=== PATIENT | male | born 1945 | race Caucasian/White ===

== ENCOUNTER 2017-05-09 20:54 | Inpatient (IN) | payer OTHER, MEDICARE ==
[2017-05-10] MEDS ORDERED: MAGNESIUM HYDROXIDE SUSP 30 ML CUP PO PRN (02:15)
[2017-05-10] MEDS ORDERED: cloNIDine HCL 0.1 MG TAB PO PRN (02:15)
[2017-05-10] MEDS ORDERED: NICOTINE 21 MG/24 HR PATCH T-DERMAL SCH (09:00)
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
[2017-05-10] MEDS ORDERED: DIPH25CA PO (12:04)
[2017-05-10] MEDS ORDERED: DULC10SU3 RECTAL (12:04)
[2017-05-10] MEDS ORDERED: LISI-515 PO (12:04)
[2017-05-10] MEDS ORDERED: SERT-132 PO (12:04)
[2017-05-10] MEDS ORDERED: AMLO5TAB2 PO (12:04)
[2017-05-10] MEDS ORDERED: VIMP200T PO (12:04)
[2017-05-10] MEDS ORDERED: SERO25TA PO (12:04)
[2017-05-10] MEDS ORDERED: LEVE10003 PO (12:04)
[2017-05-10] MEDS ORDERED: DOCU8.6T PO (12:04)
[2017-05-10] MEDS ORDERED: ASPI81CH6 CHEW (12:04)
[2017-05-10] MEDS ORDERED: VITA10002 PO (12:04)
[2017-05-10] MEDS ORDERED: MULT-65 PO (12:04)
[2017-05-10] MEDS ORDERED: MELA5 PO (12:04)
[2017-05-10] MEDS ORDERED: METO25TA3 PO (12:04)
[2017-05-10] MEDS ORDERED: TYLE325T PO (12:04)
[2017-05-10] MEDS ORDERED: MILKSUS PO (12:04)
[2017-05-10] MEDS ORDERED: ARTI1SOL EACH EYE (12:04)
[2017-05-10] MEDS ORDERED: POLY17S PO (12:04)
[2017-05-10] MEDS ORDERED: CLON0.1T PO (12:04)
[2017-05-10] MEDS: QUEtiapine FUMARATE 25 MG TAB PO SCH ×3 (13:00→21:34)
[2017-05-10] MEDS: cloNIDine HCL 0.1 MG TAB PO SCH ×3 (14:15→21:37)
[2017-05-10] MEDS: levETIRAcetam 500 MG TAB PO SCH ×2 (14:16→21:34)
[2017-05-10] MEDS: ACETAMINOPHEN 325 MG TAB PO PRN ×2 (16:15→22:37)
--- NOTE | 2017-05-10 18:08 | PD.CONS ---
HPI Service [facility] Hospitalists Consult Requested By Primary Care Physician Non-Staff Diagnoses: History of Present Illness 71-year-old male with a history of dementia, seizure disorder, hypertension who is brought to psychiatry for confusion. History is limited by tangential speech. Patient reports feeling all right. Denies any chest pain or shortness of breath. Denies any nausea or vomiting. He does report a history of IBS with occasional abdominal cramping. She denies any diarrhea or constipation. Denies any dysuria. Review of Systems Except as stated in HPI: all other systems reviewed are Neg Past Family Social History Allergies: Coded Allergies: No Known Allergies (Verified Allergy, Unknown, 05/10/17) Past Medical History Hypertension BPH Irritable bowel syndrome PTSD Degenerative disc disease Suspected seizure disorder Sleep disorder Past Surgical History Patient reports history of right knee surgery Active Ordered Medications Current Medications Medications (Trade) Dose Ordered Sig/Ray Route Start Time Stop Time Status Last Admin (Tylenol) 650 mg Q4H PRN PO 05/10/17 02:15 05/10/17 16:15 (Milk Of Magnesia Liq) 30 ml DAILY PRN PO 05/10/17 02:15 (Mag-Al Plus Susp Liq) 30 ml Q6H PRN PO 05/10/17 02:15 (Habitrol 21 Mg Patch.24 Hr) 1 patch DAILY T-DERMAL 05/10/17 09:00 Miscellaneous Information 1 HS T-DERMAL 05/10/17 21:00 (Catapres) 0.1 mg Q8H PRN PO 05/10/17 02:15 (SEROquel) 25 mg QID PO 05/10/17 13:00 05/10/17 17:27 (Norvasc) 5 mg BID PO 05/10/17 21:00 (Aspirin Chew) 81 mg DAILY CHEW 05/11/17 09:00 (Catapres) 0.1 mg Q8HR PO 05/10/17 14:00 05/10/17 14:15 (Vitamin B12) 1,000 mcg DAILY PO 05/11/17 09:00 (Vimpat) 200 mg Q12HR PO 05/10/17 21:00 (Keppra) 1,000 mg Q8HR PO 05/10/17 14:00 05/10/17 14:16 (Prinivil) 20 mg DAILY PO 05/11/17 09:00 (Melatonin) 5 mg HS PO 05/10/17 21:00 (Lopressor) 12.5 mg BID PO 05/10/17 21:00 (Corinne-Colace) 1 tab BID PO 05/10/17 21:00 (Zoloft) 50 mg DAILY PO 05/11/17 09:00 (Theragran) 1 tab DAILY PO 05/11/17 09:00 Family History Attempted, however unable to distractibility Social History Patient reports he quit smoking years ago. Reports quit drinking. He denies drugs. Denies illicit drugs. Physical Exam Physical Exam GENERAL: This is a well-nourished, well-developed patient, in no apparent distress. Disoriented. Distracted and tangential speech. SKIN: No rashes,or lesions. Cool and dry. Patient does have some ecchymosis over the right hand, without any broken skin. HEAD: Atraumatic. Normocephalic. No temporal or scalp tenderness. EYES: Pupils equal round and reactive. Extraocular motions intact. No scleral icterus. No injection or drainage. ENT: Nose without bleeding, purulent drainage or septal hematoma. Throat without erythema, tonsillar hypertrophy or exudate. Uvula midline. Airway patent. NECK: Trachea midline. No JVD or lymphadenopathy. Supple, nontender, no meningeal signs. CARDIOVASCULAR: Regular rate and rhythm without murmurs, gallops, or rubs. RESPIRATORY: Clear to auscultation. Breath sounds equal bilaterally. No wheezes , rales, or rhonchi. GASTROINTESTINAL: Abdomen soft, non-tender, nondistended. No hepato-splenomegaly , or palpable masses. No guarding. MUSCULOSKELETAL: Extremities without clubbing, cyanosis, or edema. No joint tenderness, effusion, or edema noted. No calf tenderness. Negative Homans sign bilaterally. NEUROLOGICAL: Awake and alert. Cranial nerves II through XII intact. Motor and sensory grossly within normal limits. Five out of 5 muscle strength in all muscle groups. Normal speech. Assessment and Plan Assessment and Plan Basic labs are pending for tomorrow. /Late onset Alzheimer's = Outside imaging with chronic changes, no acute findings. //Hypertension Blood pressure acceptable. Continue amlodipine, metoprolol, lisinopril, aspirin. //Seizure disorder. Appears to be without seizure activity. Continue Vimpat and Keppra. //Previous tobacco use. Patient appears to quit. Refuses nicotine patch. We' ll discontinue. Discussed Condition With Patient,Romario Walker MD May 10, 2017 18:08
[2017-05-10 18:14] VITALS: BP 142/77; PULSE 63; RESP 20; TEMP 98.5; O2SAT 98
[2017-05-10] MEDS: REMOVE OLD NICOTINE PATCH T-DERMAL SCH (21:00)
[2017-05-10] MEDS: amLODIPine BESYLATE 5 MG TAB PO SCH (21:34)
[2017-05-10] MEDS: METOPROLOL TARTRATE 25 MG TAB PO SCH (21:35)
[2017-05-10] MEDS: MELATONIN 5 MG TAB PO SCH (21:35)
[2017-05-10] MEDS: DOCUSATE SODIUM 50 MG/SENNA 8.6 MG TAB PO SCH (21:35)
[2017-05-10] MEDS: LACOSAMIDE 100 MG TAB PO SCH (22:23)
[2017-05-11 05:30] VITALS: BP 105/58; PULSE 65; RESP 16; TEMP 97.9
[2017-05-11] MEDS: cloNIDine HCL 0.1 MG TAB PO SCH ×4 (06:00→21:42)
[2017-05-11] MEDS: levETIRAcetam 500 MG TAB PO SCH ×3 (06:10→21:43)
[2017-05-11] MEDS: ALUMINUM/MAGNESIUM/SIMETH 30 ML CUP PO PRN ×2 (06:17→13:32)
[2017-05-11] MEDS: DOCUSATE SODIUM 50 MG/SENNA 8.6 MG TAB PO SCH ×2 (08:19→21:33)
[2017-05-11] MEDS: LACOSAMIDE 100 MG TAB PO SCH ×2 (08:19→21:35)
[2017-05-11] MEDS: METOPROLOL TARTRATE 25 MG TAB PO SCH ×2 (08:19→21:34)
[2017-05-11] MEDS: SERTRALINE HCL 50 MG TAB PO SCH (08:19)
[2017-05-11] MEDS: amLODIPine BESYLATE 5 MG TAB PO SCH ×2 (08:20→21:34)
[2017-05-11] MEDS: QUEtiapine FUMARATE 25 MG TAB PO SCH ×4 (08:20→21:33)
[2017-05-11] MEDS: MULTIVITAMIN TAB PO SCH (08:20)
[2017-05-11] MEDS: ASPIRIN 81 MG CHEW TAB CHEW SCH (08:20)
[2017-05-11] MEDS: CYANOCOBALAMIN 1,000 MCG TAB PO SCH (08:20)
[2017-05-11] MEDS: LISINOPRIL 20 MG TAB PO SCH (08:20)
[2017-05-11] MEDS ORDERED: SERTRALINE HCL 50 MG TAB PO SCH (09:00)
[2017-05-11 11:02] LABS: BICARBONATE 27.2 MEQ/L (21.0-32.0); BLOOD UREA NITROGEN 24 MG/DL (7-18); CALCIUM 8.7 MG/DL (8.5-10.1); CHLORIDE 104 MEQ/L (98-107); CHOLESTEROL 153 MG/DL (120-200); CREATININE 1.08 MG/DL (0.60-1.30); GLOMERULAR FILTRATION RATE 67 ML/MIN (>89); GLUCOSE,RANDOM 137 MG/DL (74-106); SODIUM (NA) 140 MEQ/L (136-145)
[2017-05-11 11:04] LABS: CHOLESTEROL/ HDL RATIO 3.46 RATIO; HDL CHOLESTEROL 44.1 MG/DL (40.0-60.0); LDL CHOLESTEROL 87 MG/DL (0-99); TRIGLYCERIDES 109 MG/DL (42-150)
[2017-05-11] MEDS ORDERED: POTASSIUM CHLORIDE 10 MEQ CAP PO ONE (11:45)
[2017-05-11 13:07] LABS: HEMOGLOBIN A1C 5.2 % (4.3-6.0)
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
[2017-05-11 18:33] VITALS: BP 112/62; PULSE 68; RESP 18; TEMP 97.2; O2SAT 96
[2017-05-11] MEDS: REMOVE OLD NICOTINE PATCH T-DERMAL SCH (21:00)
[2017-05-11] MEDS: MELATONIN 5 MG TAB PO SCH (21:33)
[2017-05-12 05:38] VITALS: BP 111/80; PULSE 69; RESP 16; TEMP 96; O2SAT 96
[2017-05-12] MEDS: levETIRAcetam 500 MG TAB PO SCH ×3 (05:44→21:02)
[2017-05-12] MEDS: cloNIDine HCL 0.1 MG TAB PO SCH ×3 (05:44→21:02)
[2017-05-12] MEDS: MULTIVITAMIN TAB PO SCH (09:50)
[2017-05-12] MEDS: ASPIRIN 81 MG CHEW TAB CHEW SCH (09:50)
[2017-05-12] MEDS: CYANOCOBALAMIN 1,000 MCG TAB PO SCH (09:50)
[2017-05-12] MEDS: LACOSAMIDE 100 MG TAB PO SCH ×2 (09:50→21:00)
[2017-05-12] MEDS: METOPROLOL TARTRATE 25 MG TAB PO SCH ×2 (09:50→20:59)
[2017-05-12] MEDS: amLODIPine BESYLATE 5 MG TAB PO SCH ×2 (09:51→21:00)
[2017-05-12] MEDS: DOCUSATE SODIUM 50 MG/SENNA 8.6 MG TAB PO SCH ×2 (09:51→21:00)
[2017-05-12] MEDS: LISINOPRIL 20 MG TAB PO SCH (09:52)
[2017-05-12] MEDS: SERTRALINE HCL 50 MG TAB PO SCH (09:52)
[2017-05-12] MEDS: QUEtiapine FUMARATE 25 MG TAB PO SCH ×4 (09:54→21:00)
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
[2017-05-12 17:35] VITALS: BP 144/85; PULSE 65; RESP 18; TEMP 98.4; O2SAT 96
[2017-05-12] MEDS: REMOVE OLD NICOTINE PATCH T-DERMAL SCH (21:00)
[2017-05-12] MEDS: MELATONIN 5 MG TAB PO SCH (21:00)
[2017-05-12] MEDS: ALUMINUM/MAGNESIUM/SIMETH 30 ML CUP PO PRN (21:11)
--- NOTE | 2017-05-12 23:58 | HHI.PR ---
Subjective Remarks Date of service 05/11/17. Patient seen the afternoon of 05/11/17. Patient says he is feeling well. Denies any chest pain or shortness of breath. Denies any nausea or vomiting. Says he is eating well. Otherwise with tangential speech. Objective Vital Signs Date Time Temp Pulse Resp B/P (MAP) Pulse Ox O2 Delivery O2 Flow Rate FiO2 05/12/17 17:35 98.4 65 18 144/85 (104) 96 05/12/17 05:38 96.0 69 16 111/80 (90) 96 I/O 05/12/17 05/12/17 05/12/17 05/13/17 05/13/17 05/13/17 07:00 15:00 23:00 07:00 15:00 23:00 Intake Total 0 ml 420 ml 1140 ml 600 ml Balance 0 ml 420 ml 1140 ml 600 ml Intake Oral 0 ml 420 ml 1140 ml 600 ml # Voids 3 1 Result Diagram: 05/11/17 0858 Objective Remarks GENERAL: patient lying in bed. Appears comfortable. SKIN: Warm and dry. HEAD: Normocephalic. EYES: No scleral icterus. No injection or drainage. NECK: Supple, trachea midline. No JVD . CARDIOVASCULAR: Regular rate and rhythm without murmurs, gallops, or rubs. RESPIRATORY: Breath sounds equal bilaterally. No accessory muscle use. GASTROINTESTINAL: Abdomen soft, non-tender, nondistended. MUSCULOSKELETAL: No cyanosis, or edema. BACK: Nontender without obvious deformity. No CVA tenderness. A/P Assessment and Plan /Late onset Alzheimer's = Outside imaging with chronic changes, no acute findings. //Hypertension Blood pressure acceptable. Continue amlodipine, metoprolol, lisinopril, aspirin. //Dehydration on labs BUN 24, creatinine 1.08 indicating dehydration. Encourage IV fluids. Hypokalemia. Potassium 3.4. Replaced. Continue to monitor intermittently. //Seizure disorder. Appears to be without seizure activity. Continue Vimpat and Keppra. //Previous tobacco use. Patient appears to quit. Refuses nicotine patch. We' ll discontinue. Discharge Planning we will continue to follow. Romario Jimenez MD May 12, 2017 23:58
[2017-05-13] MEDS: cloNIDine HCL 0.1 MG TAB PO SCH ×3 (05:57→21:04)
[2017-05-13] MEDS: levETIRAcetam 500 MG TAB PO SCH ×3 (05:57→21:04)
[2017-05-13 09:28] LABS: AUTOMATED NEUTROPHIL # 6.5 TH/MM3 (1.8-7.7); BASOPHIL # 0.1 TH/MM3 (0-0.2); BASOPHIL % 0.8 % (0.0-2.0); EOSINOPHIL # 0.4 TH/MM3 (0-0.4); EOSINOPHIL % 3.7 % (0.0-4.0); HEMATOCRIT 33.1 % (39.0-51.0); HEMOGLOBIN 11.7 GM/DL (13.0-17.0); LYMPH % 22.6 % (9.0-44.0); LYMPHOCYTE # 2.2 TH/MM3 (1.0-4.8); MEAN CELL VOLUME 90.2 FL (80.0-100.0); MEAN CORPUSCULAR HGB CONC 35.5 % (32.0-36.0); MEAN PLATELET VOLUME 8.1 FL (7.0-11.0); MONO % 7.2 % (0.0-8.0); MONOCYTE # 0.7 TH/MM3 (0-0.9); NEUT % 65.7 % (16.0-70.0); PLATELET COUNT 192 TH/MM3 (150-450); RED BLOOD COUNT 3.67 MIL/MM3 (4.50-5.90); RED CELL DISTRIBUTION WIDTH 13.9 % (11.6-17.2); WHITE BLOOD COUNT 9.9 TH/MM3 (4.0-11.0)
[2017-05-13] MEDS: DOCUSATE SODIUM 50 MG/SENNA 8.6 MG TAB PO SCH ×2 (09:34→20:48)
[2017-05-13] MEDS: METOPROLOL TARTRATE 25 MG TAB PO SCH ×2 (09:35→20:48)
[2017-05-13] MEDS: CYANOCOBALAMIN 1,000 MCG TAB PO SCH (09:35)
[2017-05-13] MEDS: amLODIPine BESYLATE 5 MG TAB PO SCH ×2 (09:39→20:48)
[2017-05-13] MEDS: MULTIVITAMIN TAB PO SCH (09:39)
[2017-05-13] MEDS: ASPIRIN 81 MG CHEW TAB CHEW SCH (09:39)
[2017-05-13] MEDS: SERTRALINE HCL 50 MG TAB PO SCH (09:40)
[2017-05-13] MEDS: LACOSAMIDE 100 MG TAB PO SCH ×2 (09:40→20:48)
[2017-05-13] MEDS: QUEtiapine FUMARATE 25 MG TAB PO SCH ×4 (09:40→20:48)
[2017-05-13] MEDS: LISINOPRIL 20 MG TAB PO SCH (09:40)
[2017-05-13 10:00] LABS: ALBUMIN 3.8 GM/DL (3.4-5.0); BICARBONATE 27.7 MEQ/L (21.0-32.0); CALCIUM 9.1 MG/DL (8.5-10.1); CREATININE 1.19 MG/DL (0.60-1.30); MAGNESIUM 2.2 MG/DL (1.5-2.5); PHOSPHORUS 3.6 MG/DL (2.5-4.9)
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
[2017-05-13] MEDS: MELATONIN 5 MG TAB PO SCH (20:48)
[2017-05-13] MEDS: REMOVE OLD NICOTINE PATCH T-DERMAL SCH (20:52)
[2017-05-14 05:52] VITALS: BP 111/68; PULSE 64; RESP 16; TEMP 97.4; O2SAT 100
[2017-05-14] MEDS: levETIRAcetam 500 MG TAB PO SCH ×3 (06:07→20:49)
[2017-05-14] MEDS: cloNIDine HCL 0.1 MG TAB PO SCH ×3 (06:07→20:19)
[2017-05-14 08:47] VITALS: BP 134/70
[2017-05-14] MEDS: amLODIPine BESYLATE 5 MG TAB PO SCH ×2 (08:49→20:49)
[2017-05-14] MEDS: DOCUSATE SODIUM 50 MG/SENNA 8.6 MG TAB PO SCH ×2 (08:49→20:49)
[2017-05-14] MEDS: MULTIVITAMIN TAB PO SCH (08:49)
[2017-05-14] MEDS: SERTRALINE HCL 50 MG TAB PO SCH (08:49)
[2017-05-14] MEDS: METOPROLOL TARTRATE 25 MG TAB PO SCH ×2 (08:49→20:49)
[2017-05-14] MEDS: ASPIRIN 81 MG CHEW TAB CHEW SCH (08:49)
[2017-05-14] MEDS: QUEtiapine FUMARATE 25 MG TAB PO SCH ×4 (08:49→20:49)
[2017-05-14] MEDS: LACOSAMIDE 100 MG TAB PO SCH ×2 (08:49→20:49)
[2017-05-14] MEDS: LISINOPRIL 20 MG TAB PO SCH (08:50)
[2017-05-14] MEDS: CYANOCOBALAMIN 1,000 MCG TAB PO SCH (08:57)
[2017-05-14 14:00] VITALS: BP 112/58; PULSE 58
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
[2017-05-14 18:16] VITALS: BP 111/58; PULSE 61; RESP 18; TEMP 98.6; O2SAT 98
--- NOTE | 2017-05-14 19:56 | HHI.PR ---
Subjective Remarks no major overnight events. Patient denies cp/sob. stable vital signs Objective Vitals Vital Signs Date Time Temp Pulse Resp B/P (MAP) Pulse Ox O2 Delivery O2 Flow Rate FiO2 05/14/17 18:16 98.6 61 18 111/58 (75) 98 05/14/17 14:00 58 112/58 (76) 05/14/17 08:47 134/70 (91) 05/14/17 05:52 97.4 64 16 111/68 (82) 100 I/O 05/13/17 05/13/17 05/13/17 05/14/17 05/14/17 05/14/17 07:00 15:00 23:00 07:00 15:00 23:00 Intake Total 600 ml 240 ml 240 ml 480 ml 480 ml Balance 600 ml 240 ml 240 ml 480 ml 480 ml Intake Oral 600 ml 240 ml 240 ml 480 ml 480 ml # Voids 2 2 4 # Bowel Movements 0 Result Diagram: 05/13/17 0800 05/13/17 0800 Objective Remarks GENERAL: patient lying in bed. Appears comfortable. SKIN: Warm and dry. HEAD: Normocephalic. EYES: No scleral icterus. No injection or drainage. NECK: Supple, trachea midline. No JVD . CARDIOVASCULAR: Regular rate and rhythm without murmurs, gallops, or rubs. RESPIRATORY: Breath sounds equal bilaterally. No accessory muscle use. GASTROINTESTINAL: Abdomen soft, non-tender, nondistended. MUSCULOSKELETAL: No cyanosis, or edema. BACK: Nontender without obvious deformity. No CVA tenderness. A/P Problem List: (1) ALZHEIMER'S DISEASE WITH LATE ONSET ICD Code: G30.1 - ALZHEIMER'S DISEASE WITH LATE ONSET Plan: Management as per psychiatry. Continue Zoloft. (2) HTN (hypertension) ICD Code: I10 - Essential (primary) hypertension Plan: BP stable. Continue lisinopril. (3) Hypokalemia ICD Code: E87.6 - Hypokalemia Plan: Replaced, potassium level is 3.9. Assessment and Plan I will sign off please reconsult as needed. Problem Qualifiers (1) HTN (hypertension): Qualified Codes: I10 - Essential (primary) hypertension Abelardo Srivastava MD May 14, 2017 19:56
[2017-05-14] MEDS: MELATONIN 5 MG TAB PO SCH (20:49)
[2017-05-14] MEDS: REMOVE OLD NICOTINE PATCH T-DERMAL SCH (20:50)
[2017-05-15] MEDS: cloNIDine HCL 0.1 MG TAB PO SCH ×3 (05:31→22:31)
[2017-05-15] MEDS: levETIRAcetam 500 MG TAB PO SCH ×3 (05:31→22:31)
[2017-05-15 05:43] VITALS: BP 139/67; PULSE 61; RESP 18; TEMP 98.5; O2SAT 98
[2017-05-15 08:30] VITALS: BP 120/72; PULSE 68
[2017-05-15] MEDS: LACOSAMIDE 100 MG TAB PO SCH ×2 (08:38→21:04)
[2017-05-15] MEDS: MULTIVITAMIN TAB PO SCH (08:39)
[2017-05-15] MEDS: CYANOCOBALAMIN 1,000 MCG TAB PO SCH (08:39)
[2017-05-15] MEDS: DOCUSATE SODIUM 50 MG/SENNA 8.6 MG TAB PO SCH ×2 (08:39→21:05)
[2017-05-15] MEDS: QUEtiapine FUMARATE 25 MG TAB PO SCH ×4 (08:39→21:04)
[2017-05-15] MEDS: ASPIRIN 81 MG CHEW TAB CHEW SCH (08:39)
[2017-05-15] MEDS: METOPROLOL TARTRATE 25 MG TAB PO SCH ×2 (08:40→21:05)
[2017-05-15] MEDS: amLODIPine BESYLATE 5 MG TAB PO SCH ×2 (08:40→21:04)
[2017-05-15] MEDS: SERTRALINE HCL 50 MG TAB PO SCH (08:40)
[2017-05-15] MEDS: LISINOPRIL 20 MG TAB PO SCH (08:41)
[2017-05-15] MEDS ORDERED: diphenhydrAMINE HCL 50 MG/ML VIAL ONE (11:44)
[2017-05-15] MEDS ORDERED: HALOPERIDOL LACTATE 5 MG/ML AMP ONE (11:44)
[2017-05-15] MEDS ORDERED: diphenhydrAMINE HCL 50 MG/ML VIAL IM ONE ×2 (12:30→12:45)
[2017-05-15] MEDS ORDERED: HALOPERIDOL LACTATE 5 MG/ML AMP IM ONE ×2 (12:30→12:45)
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
[2017-05-15 18:17] VITALS: BP 135/64; PULSE 80; RESP 18; TEMP 98.3; O2SAT 98
[2017-05-15] MEDS: REMOVE OLD NICOTINE PATCH T-DERMAL SCH (21:00)
[2017-05-15] MEDS: MELATONIN 5 MG TAB PO SCH (21:05)
[2017-05-15] MEDS: ACETAMINOPHEN 325 MG TAB PO PRN (23:05)
--- NOTE | 2017-05-15 23:58 | RADRPT ---
EXAM DATE/TIME: 05/15/2017 23:39 [facility] COMPARISON: No previous studies available for comparison. INDICATIONS : Right wrist pain and swelling post fall. MEDICAL HISTORY : None. SURGICAL HISTORY : None. ENCOUNTER: Initial ACUITY: 1 day PAIN SCORE: 7/10 LOCATION: Right wrist FINDINGS: Three view examination of the right wrist demonstrates no soft tissue swelling, dislocation, or acute fracture. Bony remodeling in the distal radius consistent with prior fracture. There is also an old ulnar styloid fracture. The carpal bones are in normal alignment. The joint spaces are maintained. Bony mineralization is normal. CONCLUSION: 1. No acute fracture or dislocation. Estievn Brown MD on May 15, 2017 at 23:55 Board Certified Radiologist. This report was verified electronically.
--- NOTE | 2017-05-15 23:59 | RADRPT ---
EXAM DATE/TIME: 05/15/2017 23:41 [facility] COMPARISON: No previous studies available for comparison. INDICATIONS : Left foot pain and swelling post fall MEDICAL HISTORY : None. SURGICAL HISTORY : None. ENCOUNTER: Initial ACUITY: 1 day PAIN SCORE: 7/10 LOCATION: Left Foot FINDINGS: Three view examination of the left foot demonstrates no soft tissue swelling, dislocation, or fractur e. The tarsal bones appear intact. The interphalangeal and metatarsophalangeal joints are intact. The calcaneus is intact. Bony mineralization is normal. CONCLUSION: 1. No acute fracture or dislocation. Estiven Brown MD on May 15, 2017 at 23:57 Board Certified Radiologist. This report was verified electronically.
[2017-05-16] MEDS: cloNIDine HCL 0.1 MG TAB PO SCH ×3 (06:00→14:00)
[2017-05-16] MEDS: levETIRAcetam 500 MG TAB PO SCH ×2 (06:37→14:00)
[2017-05-16] MEDS: QUEtiapine FUMARATE 25 MG TAB PO SCH ×2 (08:27→12:27)
[2017-05-16] MEDS: METOPROLOL TARTRATE 25 MG TAB PO SCH (08:27)
[2017-05-16] MEDS: LISINOPRIL 20 MG TAB PO SCH (08:27)
[2017-05-16] MEDS: amLODIPine BESYLATE 5 MG TAB PO SCH (08:27)
[2017-05-16] MEDS: MULTIVITAMIN TAB PO SCH (08:27)
[2017-05-16] MEDS: SERTRALINE HCL 50 MG TAB PO SCH (08:27)
[2017-05-16] MEDS: ASPIRIN 81 MG CHEW TAB CHEW SCH (08:27)
[2017-05-16] MEDS: CYANOCOBALAMIN 1,000 MCG TAB PO SCH (08:27)
[2017-05-16] MEDS: LACOSAMIDE 100 MG TAB PO SCH (08:27)
[2017-05-16] MEDS: DOCUSATE SODIUM 50 MG/SENNA 8.6 MG TAB PO SCH (08:27)
[2017-05-16] MEDS ORDERED: AMLO5TAB2 PO (11:57)
[2017-05-16] MEDS ORDERED: VIMP200T PO (11:57)
[2017-05-16] MEDS ORDERED: LISI-515 PO (11:57)
[2017-05-16] MEDS ORDERED: LEVE10003 PO (11:57)
[2017-05-16] MEDS ORDERED: ASPI81CH6 CHEW (11:57)
[2017-05-16] MEDS ORDERED: MELA5 PO (11:57)
[2017-05-16] MEDS ORDERED: SERT-132 PO (11:57)
[2017-05-16] MEDS ORDERED: DOCU8.6T PO (11:57)
[2017-05-16] MEDS ORDERED: METO25TA3 PO (11:57)
[2017-05-16] MEDS ORDERED: CLON.1 PO (11:57)
[2017-05-16] MEDS ORDERED: SERO25TA PO (11:57)
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
== END 2017-05-16 14:40 | DRG 57 ==
LOC: H250 05-10 01:30 → H260 05-13 17:07 → H250 05-13 17:27
PROVIDERS: ADMIT Psychiatry & Neurology Psychiatry; ATTEND Psychiatry & Neurology Psychiatry
DX: G30.1 Alzheimer's disease with late onset (principal); F02.81 Dementia in other diseases classified elsewhere, unspecified severity, with behavioral disturbance; G40.909 Epilepsy, unspecified, not intractable, without status epilepticus; F43.12 Post-traumatic stress disorder, chronic; I10 Essential (primary) hypertension; N40.0 Benign prostatic hyperplasia without lower urinary tract symptoms; K58.9 Irritable bowel syndrome, unspecified; G47.9 Sleep disorder, unspecified; E86.0 Dehydration; E87.6 Hypokalemia; Z87.891 Personal history of nicotine dependence
CPT/HCPCS: 73110; 73630; 80048; 80061; 80069; 83036; 83735; 85025; J1200; J1630

== ENCOUNTER 2017-05-20 19:48 | Inpatient (IN) | payer OTHER, MEDICARE ==
[~2017-05-20 19:48] MED LIST: AMLO5TAB2 PO; ARTI1SOL EACH EYE; ASPI81CH6 CHEW; CLON.1 PO; DIPH25CA PO; DOCU8.6T PO; DULC10SU3 RECTAL; LEVE10003 PO; LISI-515 PO; MELA5 PO; METO25TA3 PO; MILKSUS PO; MULT-65 PO; POLY17S PO; SERO25TA PO; SERT-132 PO; TYLE325T PO; VIMP200T PO; VITA10002 PO
[2017-05-20 20:45] VITALS: BP 155/100; PULSE 76; RESP 18; TEMP 99.6; O2SAT 99
[2017-05-20 21:03] LABS: AUTOMATED NEUTROPHIL # 12.1 TH/MM3 (1.8-7.7); BASOPHIL # 0.1 TH/MM3 (0-0.2); BASOPHIL % 0.9 % (0.0-2.0); EOSINOPHIL # 0.1 TH/MM3 (0-0.4); EOSINOPHIL % 0.5 % (0.0-4.0); HEMATOCRIT 38.8 % (39.0-51.0); HEMOGLOBIN 13.4 GM/DL (13.0-17.0); LYMPH % 14.9 % (9.0-44.0); LYMPHOCYTE # 2.3 TH/MM3 (1.0-4.8); MEAN CELL VOLUME 91.2 FL (80.0-100.0); MEAN CORPUSCULAR HEMOGLOBIN 31.4 PG (27.0-34.0); MEAN CORPUSCULAR HGB CONC 34.5 % (32.0-36.0); MEAN PLATELET VOLUME 8.1 FL (7.0-11.0); MONO % 6.4 % (0.0-8.0); NEUT % 77.3 % (16.0-70.0); PLATELET COUNT 310 TH/MM3 (150-450); RED BLOOD COUNT 4.25 MIL/MM3 (4.50-5.90); WHITE BLOOD COUNT 15.6 TH/MM3 (4.0-11.0)
[2017-05-20 21:08] LABS: ALBUMIN 4.7 GM/DL (3.4-5.0); BLOOD UREA NITROGEN 36 MG/DL (7-18); CALCIUM 9.6 MG/DL (8.5-10.1); CHLORIDE 105 MEQ/L (98-107); CREATININE 1.77 MG/DL (0.60-1.30); GLOMERULAR FILTRATION RATE 38 ML/MIN (>89); GLUCOSE,RANDOM 85 MG/DL (74-106); SODIUM (NA) 140 MEQ/L (136-145)
[2017-05-20 21:09] LABS: AST (GOT) 25 U/L (15-37)
[2017-05-20] MEDS ORDERED: VALP250C PO (21:09)
[2017-05-20 21:13] LABS: ALKALINE PHOSPHATASE 123 U/L (45-117); ALT (GPT) 25 U/L (12-78); TOTAL BILIRUBIN ADULT 0.4 MG/DL (0.2-1.0); TOTAL PROTEIN 8.3 GM/DL (6.4-8.2)
[2017-05-20 22:57] VITALS: BP 109/72; PULSE 104; RESP 18; TEMP 98.1; O2SAT 99
[2017-05-20] MEDS ORDERED: diphenhydrAMINE HCL 50 MG/ML VIAL - HS PRN IM (23:45)
[2017-05-20] MEDS ORDERED: ACETAMINOPHEN 325 MG TAB PO PRN (23:45)
[2017-05-20] MEDS ORDERED: diphenhydrAMINE HCL 50 MG CAP PO PRN (23:45)
[2017-05-20] MEDS ORDERED: MAGNESIUM HYDROXIDE SUSP 30 ML CUP PO PRN (23:45)
[2017-05-20] MEDS ORDERED: diphenhydrAMINE HCL 50 MG/ML VIAL IM PRN (23:45)
[2017-05-20] MEDS ORDERED: hydrOXYzine HCL 50 MG TAB PO PRN (23:45)
[2017-05-20] MEDS ORDERED: diphenhydrAMINE HCL 50 MG CAP - HS PRN PO (23:45)
--- NOTE | 2017-05-21 00:36 | PD ---
HPI Chief Complaint: Psychiatric Symptoms Time Seen by Provider: 21:25 Travel History International Travel<30 days: No Contact w/Intl Traveler<30days: No Traveled to known affect area: No History of Present Illness HPI 71-year-old white male presents emergency department after being treated here at the hospital a few days ago. He was discharged back to the nursing facility but review of the medical record the patient allegedly had become more confused and combative. The patient is pleasant but is confused. No significant history is obtainable through the patient. Review of the medical record. PFSH Past Medical History Autoimmune Disease: No Depression: Yes Cancer: No Cardiovascular Problems: No Diabetes: No Diminished Hearing: Yes Endocrine: No Gastrointestinal Disorders: Yes (ibs) Genitourinary: No Hypertension: Yes Immune Disorder: No Implanted Vascular Access Dvce: No Musculoskeletal: Yes Neurologic: Yes (herniated intervertebral disc) Psychiatric: Yes (PTSD) Reproductive: Yes (enlarged prostate) Respiratory: No Seizures: No Tetanus Vaccination: Unknown Past Surgical History Other Surgery: Yes Social History Alcohol Use: No Tobacco Use: No Substance Use: No Allergies-Medications (Allergen,Severity, Reaction): Coded Allergies: No Known Allergies (Verified Allergy, Unknown, 05/10/17) Reported Meds & Prescriptions Reported Meds & Active Scripts Active Seroquel (Quetiapine Fumarate) 25 Mg Tab 25 Mg PO QID Catapres (Clonidine) 0.1 Mg Tab 0.1 Mg PO Q8HR Metoprolol Tartrate 25 Mg Tab 12.5 Mg PO BID Lisinopril 20 Mg Tab 20 Mg PO DAILY Sertraline (Sertraline HCl) 50 Mg Tab 50 Mg PO DAILY Docusate Sodium-Senna (Sennosides-Docusate Sodium) 8.6-50 Mg Tab 1 Tab PO BID Melatonin 5 Mg Tab 3 Mg PO HS Levetiracetam 1,000 Mg Tab 1,000 Mg PO Q8HR Vimpat (Lacosamide) 200 Mg Tab 200 Mg PO Q12HR Aspirin Low Dose (Aspirin) 81 Mg Chew 81 Mg CHEW DAILY Amlodipine (Amlodipine Besylate) 5 Mg Tab 5 Mg PO BID Reported Valproic Acid 250 Mg Cap 500 Mg PO BID Tylenol (Acetaminophen) 325 Mg Tab 325 Mg PO Q8HR PRN Tylenol (Acetaminophen) 325 Mg Tab 325 Mg PO Q8HR PRN Milk of Magnesia Liq (Magnesium Hydroxide) 400 Mg/5 Ml Susp 30 Ml PO DAILY PRN Diphenhydramine (Diphenhydramine HCl) 25 Mg Cap 25 Mg PO Q4H PRN Polyethylene Glycol 3350 Powder (Polyethylene Glycol) 17 Gram Pow 17 Gm PO DAILY PRN Nature's Tears Eye Drops (Dextran 70/Hypromellose) 0.1 %-0.3 % Drops 1 Drop EACH EYE Q6HR PRN Multi-Vitamin Daily (Multiple Vitamin) 1 Tab Tab 1 Tab PO DAILY Dulcolax Supp (Bisacodyl) 10 Mg Supp 10 Mg RECTAL DAILY PRN Vitamin B-12 (Cyanocobalamin) 1,000 Mcg Tab 1,000 Mcg PO DAILY Review of Systems ROS Limitations: Poor Historian Physical Exam Narrative GENERAL: Well-nourished, well-developed patient. SKIN: Warm and dry. Patient has multiple skin tears to the forearms bilaterally. There is also multiple abrasions contusions to the lower extremities. These are in various stages of healing. No signs of wound infection. HEAD: Normocephalic and atraumatic. EYES: No scleral icterus. No injection or drainage. ENT: No nasal drainage noted. Mucous membranes pink. Airway patent. NECK: Supple, trachea midline. Moves head freely without obvious discomfort. CARDIOVASCULAR: Regular rate and rhythm without murmurs, gallops, or rubs. RESPIRATORY: Breath sounds equal bilaterally. No accessory muscle use. GASTROINTESTINAL: Abdomen soft, non-tender, nondistended. EXTREMITIES: No cyanosis or edema. BACK: Nontender without obvious deformity. No CVA tenderness. NEURO: Patient is alert and oriented to person. no sensorimotor deficits. normal speech. Data Data Last Documented VS Vital Signs Date Time Temp Pulse Resp B/P (MAP) Pulse Ox O2 Delivery O2 Flow Rate FiO2 05/20/17 22:57 98.1 104 18 109/72 (84) 99 Room Air Orders Orders Complete Blood Count With Diff (05/20/17 19:52) Comprehensive Metabolic Panel (05/20/17 19:52) Urinalysis - C+S If Indicated (05/20/17 19:52) Psych Screen (05/20/17 19:52) Valproic Acid (Depakene) (05/20/17 20:59) Hydroxyzine Hcl (Atarax) (05/20/17 23:45) Diphenhydramine (Benadryl) (05/20/17 23:45) Diphenhydramine Inj (Benadryl Inj) (05/20/17 23:45) Diphenhydramine (Benadryl) (05/20/17 23:45) Diphenhydramine Inj (Benadryl Inj) (05/20/17 23:45) Acetaminophen (Tylenol) (05/20/17 23:45) Magnesium Hydroxide Liq (Milk Of Magnesi (05/20/17 23:45) Al-Mag Hy-Si 40-40-4 Mg/Ml Liq (Mag-Al P (05/20/17 23:45) Labs Laboratory Tests Test 05/20/17 20:29 White Blood Count 15.6 TH/MM3 Red Blood Count 4.25 MIL/MM3 Hemoglobin 13.4 GM/DL Hematocrit 38.8 % Mean Corpuscular Volume 91.2 FL Mean Corpuscular Hemoglobin 31.4 PG Mean Corpuscular Hemoglobin Concent 34.5 % Red Cell Distribution Width 14.0 % Platelet Count 310 TH/MM3 Mean Platelet Volume 8.1 FL Neutrophils (%) (Auto) 77.3 % Lymphocytes (%) (Auto) 14.9 % Monocytes (%) (Auto) 6.4 % Eosinophils (%) (Auto) 0.5 % Basophils (%) (Auto) 0.9 % Neutrophils # (Auto) 12.1 TH/MM3 Lymphocytes # (Auto) 2.3 TH/MM3 Monocytes # (Auto) 1.0 TH/MM3 Eosinophils # (Auto) 0.1 TH/MM3 Basophils # (Auto) 0.1 TH/MM3 CBC Comment DIFF FINAL Differential Comment Blood Urea Nitrogen 36 MG/DL Creatinine 1.77 MG/DL Random Glucose 85 MG/DL Total Protein 8.3 GM/DL Albumin 4.7 GM/DL Calcium Level 9.6 MG/DL Alkaline Phosphatase 123 U/L Aspartate Amino Transf (AST/SGOT) 25 U/L Alanine Aminotransferase (ALT/SGPT) 25 U/L Total Bilirubin 0.4 MG/DL Sodium Level 140 MEQ/L Potassium Level 4.6 MEQ/L Chloride Level 105 MEQ/L Carbon Dioxide Level 23.0 MEQ/L Anion Gap 12 MEQ/L Estimat Glomerular Filtration Rate 38 ML/MIN Valproic Acid (Depakene) Level 54 MCG/ML MDM Medical Decision Making Medical Screen Exam Complete: Yes Emergency Medical Condition: Yes Medical Record Reviewed: Yes Interpretation(s) Laboratory Tests Test 05/20/17 20:29 White Blood Count 15.6 TH/MM3 Red Blood Count 4.25 MIL/MM3 Hemoglobin 13.4 GM/DL Hematocrit 38.8 % Mean Corpuscular Volume 91.2 FL Mean Corpuscular Hemoglobin 31.4 PG Mean Corpuscular Hemoglobin Concent 34.5 % Red Cell Distribution Width 14.0 % Platelet Count 310 TH/MM3 Mean Platelet Volume 8.1 FL Neutrophils (%) (Auto) 77.3 % Lymphocytes (%) (Auto) 14.9 % Monocytes (%) (Auto) 6.4 % Eosinophils (%) (Auto) 0.5 % Basophils (%) (Auto) 0.9 % Neutrophils # (Auto) 12.1 TH/MM3 Lymphocytes # (Auto) 2.3 TH/MM3 Monocytes # (Auto) 1.0 TH/MM3 Eosinophils # (Auto) 0.1 TH/MM3 Basophils # (Auto) 0.1 TH/MM3 CBC Comment DIFF FINAL Differential Comment Blood Urea Nitrogen 36 MG/DL Creatinine 1.77 MG/DL Random Glucose 85 MG/DL Total Protein 8.3 GM/DL Albumin 4.7 GM/DL Calcium Level 9.6 MG/DL Alkaline Phosphatase 123 U/L Aspartate Amino Transf (AST/SGOT) 25 U/L Alanine Aminotransferase (ALT/SGPT) 25 U/L Total Bilirubin 0.4 MG/DL Sodium Level 140 MEQ/L Potassium Level 4.6 MEQ/L Chloride Level 105 MEQ/L Carbon Dioxide Level 23.0 MEQ/L Anion Gap 12 MEQ/L Estimat Glomerular Filtration Rate 38 ML/MIN Valproic Acid (Depakene) Level 54 MCG/ML Differential Diagnosis MDM: High Differential diagnoses: Schizophrenia, schizoaffective disorder, bipolar, anxiety, depression, adjustment reaction, mood disorder NOS, ODD, depressive disorder NOS, dementia, dementia with agitation, psychosis NOS, substance induced mood disorder, DMDD, Asperger syndrome, infection,electrolyte abnormality, malingering. Narrative Course Mental health screening discussed with the patient. Psychiatric screen ordered. The patient has a leukocytosis etiology is not clear. It is most likely secondary to his agitation but cannot rule out an infectious source. Patient's urine is still pending. I discussed this with the nursing staff. This has been relayed to Dr. Blount the psychiatrist who will follow the urinalysis. Diagnosis Primary Impression: Medical clearance for psychiatric admission Condition: Stable Olman Be May 21, 2017 00:36
[2017-05-21 01:06] VITALS: BP 149/80; PULSE 81; RESP 20; TEMP 98.1
[2017-05-21 06:21] VITALS: BP 143/68; PULSE 68; RESP 16; TEMP 98.4; O2SAT 98
[2017-05-21] MEDS ORDERED: [UNRECOGNIZED DRUG - OTHER] EACH EYE PRN (08:45)
[2017-05-21] MEDS: CYANOCOBALAMIN 1,000 MCG TAB PO SCH (09:00)
--- NOTE | 2017-05-21 09:37 | RADRPT ---
EXAM DATE/TIME: 05/21/2017 09:08 [facility] COMPARISON: No previous studies available for comparison. INDICATIONS : Cough starting today MEDICAL HISTORY : Hypertension. SURGICAL HISTORY : None. ENCOUNTER: Initial ACUITY: 1 day PAIN SCORE: 0/10 LOCATION: Bilateral chest FINDINGS: A single view of the chest demonstrates the lungs to be symmetrically aerated without evidence of mas s, infiltrate or effusion. The cardiomediastinal contours are unremarkable. Osseous structures are intact. CONCLUSION: Normal examination. Denis Fitzgerald MD on May 21, 2017 at 9:36 Board Certified Radiologist. This report was verified electronically.
[2017-05-21 10:00] LABS: BACTERIA, URINE RARE /hpf; BILIRUBIN, URINE NEG (NEG); BLOOD, URINE NEG (NEG); GLUCOSE,URINE NEG (NEG); HYALINE CAST, URINE 1 /lpf (RARE); KETONE, URINE 10 mg/dL (NEG); MUCUS URINE FEW /lpf (OCC); NITRITE,URINE NEG (NEG); PH, URINE 5.5 (5.0-8.5); URINE COLOR YELLOW (YELLW/STRAW); URINE LEUKOCYTE ESTERASE NEG (NEG)
[2017-05-21] MEDS: LACOSAMIDE 100 MG TAB PO SCH ×2 (11:24→20:59)
[2017-05-21] MEDS: MULTIVITAMIN TAB PO SCH (11:25)
[2017-05-21] MEDS: LISINOPRIL 20 MG TAB PO SCH (11:25)
[2017-05-21] MEDS: METOPROLOL TARTRATE 25 MG TAB PO SCH ×2 (11:27→21:00)
[2017-05-21] MEDS: amLODIPine BESYLATE 5 MG TAB PO SCH ×2 (11:28→21:00)
[2017-05-21] MEDS: ASPIRIN 81 MG CHEW TAB CHEW SCH (11:28)
[2017-05-21] MEDS: VALPROIC ACID 250 MG CAP PO SCH ×2 (11:39→20:59)
--- NOTE | 2017-05-21 13:04 | HHI.HP ---
Provisional Diagnosis Admission Date May 21, 2017 at 00:54 [place] I. Unspecified psychosis, dementia with behavioral disturbance, PTSD [place] II. Deferred [place] III. Seizures, hypertension Certification of Person's Competence To Provide Express and Informed Consent I have personally examined Willian Soriano , a person being served at [facility] on, May 21, 2017 12:55. Express and informed consent means consent voluntarily given in writing, by a competent person, after sufficient explanation and disclosure of the subject matter involved to enable the person to make a knowing and willful decision without any element of force, fraud, deceit, duress, or other form of constraint or coercion. This person is 18 years of age or older, is not now known to be incompetent to consent to treatment with a guardian advocate, and does not have a health care surrogate or proxy currently making medical treatment decisions. I have found this person to be one of the following: [] Competent to provide express and informed consent, as defined above, for voluntary admission to this facility and is competent to provide express and informed consent for treatment. He/she has the consistent capacity to make well reasoned, willful, and knowing decisions concerning his or her medical or mental health treatment. The person fully and consistently understands the purpose of the admission for examination/placement and is fully capable of personally exercising all rights assured [place] [x] Incompetent to provide express and informed consent to voluntary admission, and this is incompetent to provide express and informed consent to treatment. The person must be transferred to involuntary status and a petition for a guardian advocate filed with the Circuit Court. [] Refusing to provide express and informed consent to voluntary admission but is competent to provide express and informed consent for treatment. The person must be discharged or transferred to involuntary status. Form shall be completed within 24 hours of a person's arrival at the receiving facility and filed in the clinical record of each person: 1. Admitted on a voluntary basis 2. Permitted to provide express and informed consent to his/her own treatment 3. Allowed to transfer from involuntary to voluntary status 4. Prior to permitting a person to consent to his or her own treatment after having been previously found incompetent to consent to treatment. History of Present Illness Capacity: Lacks Capacity HPI The patient is a 71 year- old man, domiciled in a assisted, , with psychiatric history of dementia with behavioral disturbances, psychosis, PTSD, the patient was recently discharged from [facility] in April, he was under the care of Dr. Lynn, documentation review, he has no previous suicidal attempts, he is on Seroquel 25 mg twice a day, Depakote 500 mg twice a day, Depakote level is 54, sertraline 50 mg, medical history hypertension, seizures, who was brought this time [place] [facility] [place] due to combative and delusional behavior. Documentation was reviewed. Case was discussed with nurse in charge. On psychiatric evaluation the patient is found calm, cooperative, but he is kind of confused. Surprisingly the patient is fully oriented 3,. He says that the reason he is hospitalized is because he has seizures and headache, but he does not seem to be aware or insightful about aggressive behavior in assisted. The patient is quite confabulative he says that he has been depressed because his and his girlfriend, both want to break up with him. He says that he is looking forward to try another woman to become his girlfriend. He reports good mood, denies suicidal and homicidal ideation, he denies visual and auditory hallucinations. She doesn't seem to remember his recent hospitalization [facility], he says that he has history of PTSD, but he is not taking medications. During my evaluation no agitation, no aggressive behavior, and increased paranoia present. Review of Systems Constitutional: DENIES: Diaphoretic episodes, Fatigue, Fever, Weight gain, Weight loss, Chills, Dizziness, Change in appetite, Night Sweats Endocrine: DENIES: Heat/cold intolerance, Polydipsia, Polyuria, Polyphagia Eyes: DENIES: Blurred vision, Diplopia, Eye inflammation, Eye pain, Vision loss , Photosensitivity, Double Vision Ears, nose, mouth, throat: DENIES: Tinnitus, Hearing loss, Vertigo, Nasal discharge, Oral lesions, Throat pain, Hoarseness, Ear Pain, Running Nose, Epistaxis, Sinus Pain, Toothache, Odynophagia Respiratory: DENIES: Apneas, Cough, Snoring, Wheezing, Hemoptysis, Sputum production, Shortness of breath Cardiovascular: DENIES: Chest pain, Palpitations, Syncope, Dyspnea on Exertion , PND, Lower Extremity Edema, Orthopnea, Claudication Gastrointestinal: DENIES: Abdominal pain, Black stools, Bloody stools, Constipation, Diarrhea, Nausea, Vomiting, Difficulty Swallowing, Anorexia Genitourinary: DENIES: Sexual dysfunction, Urinary frequency, Urinary incontinence, Urgency, Hematuria, Dysuria, Nocturia, Penile Discharge, Testicular Pain, Testicular Swelling Musculoskeletal: DENIES: Joint pain, Muscle aches, Stiffness, Joint Swelling, Back pain, Neck pain Integumentary: DENIES: Abnormal pigmentation, Nail changes, Pruritus, Rash Hematologic/lymphatic: DENIES: Bruising, Lymphadenopathy Immunologic/allergic: DENIES: Eczema, Urticaria Neurologic: DENIES: Abnormal gait, Headache, Localized weakness, Paresthesias, Seizures, Speech Problems, Tremor, Poor Balance Psychiatric: DENIES: Anxiety, Confusion, Mood changes, Depression, Hallucinations, Agitation, Suicidal Ideation, Homicidal Ideation, Delusions Past Psych History Violence risk - self (6 mos) Increased Substance Abuse History Drugs/Alcohol past 12 months Patient denies the use of alcohol and illicit drugs Past Family Social History Coded Allergies: No Known Allergies (Verified Allergy, Unknown, 05/10/17) Active Scripts Quetiapine (Seroquel) 25 Mg Tab, 25 MG PO QID for health, #120 TAB 0 Refills Prov:Jona Lynn MD 05/16/17 Clonidine (Catapres) 0.1 Mg Tab, 0.1 MG PO Q8HR for health, #30 TAB 0 Refills Prov:Jona Lynn MD 05/16/17 Metoprolol Tartrate (Metoprolol Tartrate) 25 Mg Tab, 12.5 MG PO BID for Blood Pressure Management, #30 TAB 0 Refills Prov:Jona Lynn MD 05/16/17 Lisinopril (Lisinopril) 20 Mg Tab, 20 MG PO DAILY for health, #30 TAB 0 Refills Prov:Jona Lynn MD 05/16/17 Sertraline (Sertraline) 50 Mg Tab, 50 MG PO DAILY for Depression Control, #30 TAB 0 Refills Prov:Jona Lynn MD 05/16/17 Sennosides-Docusate Sodium (Docusate Sodium-Senna) 8.6-50 Mg Tab, 1 TAB PO BID for Prevent Constipation, #60 TAB 0 Refills Prov:Jona Lynn MD 05/16/17 Melatonin (Melatonin) 5 Mg Tab, 3 MG PO HS for Provide Good Sleep, #30 TAB 0 Refills Prov:Jona Lynn MD 05/16/17 Levetiracetam (Levetiracetam) 1,000 Mg Tab, 1000 MG PO Q8HR for Control Seizures , #90 TAB 0 Refills Prov:Jona Lynn MD 05/16/17 Lacosamide (Vimpat) 200 Mg Tab, 200 MG PO Q12HR for Control Seizures, #60 TAB 0 Refills Prov:Jona Lynn MD 05/16/17 Aspirin (Aspirin Low Dose) 81 Mg Chew, 81 MG CHEW DAILY for health, #30 TAB 0 Refills Prov:Jona Lynn MD 05/16/17 Amlodipine (Amlodipine) 5 Mg Tab, 5 MG PO BID for Blood Pressure Management, # 30 TAB 0 Refills Prov:Jona Lynn MD 05/16/17 Reported Medications Valproic Acid (Valproic Acid) 250 Mg Cap, 500 MG PO BID, #60 CAP 0 Refills 05/20/17 Acetaminophen (Tylenol) 325 Mg Tab, 325 MG PO Q8HR Y for HEADACHE OR TEMP > 101 F, TAB 0 Refills 05/10/17 Acetaminophen (Tylenol) 325 Mg Tab, 325 MG PO Q8HR Y for PAIN SCALE 1 TO 3, TAB 0 Refills 05/10/17 Magnesium Hydroxide Liq (Milk of Magnesia Liq) 400 Mg/5 Ml Susp, 30 ML PO DAILY Y for CONSTIPATION, #1 BOTTLE 0 Refills 05/10/17 Diphenhydramine (Diphenhydramine) 25 Mg Cap, 25 MG PO Q4H Y for ITCHING, CAP 0 Refills 05/10/17 Polyethylene Glycol 3350 Powder (Polyethylene Glycol 3350 Powder) 17 Gram Pow, 17 GM PO DAILY Y for CONSTIPATION, #1 BOTTLE 0 Refills 05/10/17 Dextran 70/Hypromellose (Nature's Tears Eye Drops) 0.1 %-0.3 % Drops, 1 DROP EACH EYE Q6HR Y for DRY EYE 05/10/17 Multiple Vitamin (Multi-Vitamin Daily) 1 Tab Tab, 1 TAB PO DAILY for Nutritional Supplement, TAB 0 Refills 05/10/17 Bisacodyl Supp (Dulcolax Supp) 10 Mg Supp, 10 MG RECTAL DAILY Y for CONSTIPATION , #12 SUPP 0 Refills 05/10/17 Cyanocobalamin (Vitamin B-12) 1,000 Mcg Tab, 1000 MCG PO DAILY for Nutritional Supplement, #1 BOTTLE 0 Refills 05/10/17 Discontinued Reported Medications Clonidine (Clonidine) 0.1 Mg Tab, 0.1 MG PO Q8HR for Blood Pressure Management, #60 TAB 0 Refills 05/10/17 Current Medications Medications (Trade) Dose Ordered Sig/Ray Route Start Time Stop Time Status Last Admin (Atarax) 50 mg Q6H PRN PO 05/20/17 23:45 (Benadryl) 50 mg Q6H PRN PO 05/20/17 23:45 (Benadryl Inj) 50 mg Q6H PRN IM 05/20/17 23:45 (Benadryl) 50 mg HS PRN PO 05/20/17 23:45 (Benadryl Inj) 50 mg HS PRN IM 05/20/17 23:45 05/20/17 23:47 (Tylenol) 650 mg Q4H PRN PO 05/20/17 23:45 (Milk Of Magnesia Liq) 30 ml DAILY PRN PO 05/20/17 23:45 (Mag-Al Plus Susp Liq) 30 ml Q6H PRN PO 05/20/17 23:45 (Norvasc) 5 mg BID PO 05/21/17 09:00 05/21/17 11:28 (Aspirin Chew) 81 mg DAILY CHEW 05/21/17 09:00 05/21/17 11:28 (Catapres) 0.1 mg Q8HR PO 05/21/17 14:00 (Vitamin B12) 1,000 mcg DAILY PO 05/21/17 09:00 05/21/17 09:00 (Vimpat) 200 mg Q12HR PO 05/21/17 09:00 05/21/17 11:24 (Keppra) 1,000 mg Q8HR PO 05/21/17 14:00 (Prinivil) 20 mg DAILY PO 05/21/17 09:00 05/21/17 11:25 (Lopressor) 12.5 mg BID PO 05/21/17 09:00 05/21/17 11:27 (Depakene) 500 mg BID PO 05/21/17 09:00 05/21/17 11:39 Patient Own Medication PT OWN MED: NATUR... Q6HR PRN EACH EYE 05/21/17 08:45 Future Hold (Theragran) 1 tab DAILY PO 05/21/17 09:00 05/21/17 11:25 (SEROquel) 25 mg QID PO 05/21/17 13:00 UNV (Zoloft) 50 mg DAILY PO 05/21/17 13:00 UNV Family Psych History He denies family psychiatric history Social History Patient is , he has 2 kids, lives in a assisted, he is a Physical Exam Vital Signs Vital Signs Date Time Temp Pulse Resp B/P (MAP) Pulse Ox O2 Delivery O2 Flow Rate FiO2 05/21/17 06:21 98.4 68 16 143/68 (93) 98 05/20/17 22:57 Room Air I/O 05/21/17 05/21/17 05/22/17 08:00 16:00 00:00 Intake Total 360 ml Balance 360 ml Lab Results Test 05/20/17 20:29 05/21/17 09:30 White Blood Count 15.6 TH/MM3 Red Blood Count 4.25 MIL/MM3 Hemoglobin 13.4 GM/DL Hematocrit 38.8 % Mean Corpuscular Volume 91.2 FL Mean Corpuscular Hemoglobin 31.4 PG Mean Corpuscular Hemoglobin Concent 34.5 % Red Cell Distribution Width 14.0 % Platelet Count 310 TH/MM3 Mean Platelet Volume 8.1 FL Neutrophils (%) (Auto) 77.3 % Lymphocytes (%) (Auto) 14.9 % Monocytes (%) (Auto) 6.4 % Eosinophils (%) (Auto) 0.5 % Basophils (%) (Auto) 0.9 % Neutrophils # (Auto) 12.1 TH/MM3 Lymphocytes # (Auto) 2.3 TH/MM3 Monocytes # (Auto) 1.0 TH/MM3 Eosinophils # (Auto) 0.1 TH/MM3 Basophils # (Auto) 0.1 TH/MM3 CBC Comment DIFF FINAL Differential Comment Blood Urea Nitrogen 36 MG/DL Creatinine 1.77 MG/DL Random Glucose 85 MG/DL Total Protein 8.3 GM/DL Albumin 4.7 GM/DL Calcium Level 9.6 MG/DL Alkaline Phosphatase 123 U/L Aspartate Amino Transf (AST/SGOT) 25 U/L Alanine Aminotransferase (ALT/SGPT) 25 U/L Total Bilirubin 0.4 MG/DL Sodium Level 140 MEQ/L Potassium Level 4.6 MEQ/L Chloride Level 105 MEQ/L Carbon Dioxide Level 23.0 MEQ/L Anion Gap 12 MEQ/L Estimat Glomerular Filtration Rate 38 ML/MIN Valproic Acid (Depakene) Level 54 MCG/ML Urine Color YELLOW Urine Turbidity CLEAR Urine pH 5.5 Urine Specific [place] 1.020 Urine Protein TRACE mg/dL Urine Glucose (UA) NEG mg/dL Urine Ketones 10 mg/dL Urine Occult Blood NEG Urine Nitrite NEG Urine Bilirubin NEG Urine Urobilinogen LESS THAN 2.0 MG/DL Urine Leukocyte Esterase NEG Urine WBC LESS THAN 1 /hpf Urine Bacteria RARE /hpf Urine Hyaline Casts 1 /lpf Urine Mucus FEW /lpf Microscopic Urinalysis Comment CULT NOT INDICATED Mental Status Examination Appearance: Appropriate Consciousness: Alert Orientation: x4, Person Motor Activity: Normal gait Speech: Unremarkable Language: Adequate Fund of Knowledge: Adequate Attention and Concentration: Adequate Memory: Impaired Mood: Sad Affect: Irritable Thought Process & Associations: Loose associations Thought Content: Bizarre thinking Hallucination Type: None Delusion Type: Bizarre, Paranoid Suicidal Ideation: No Suicidal Plan: No Suicidal Intention: No Homicidal Ideation: No Homicidal Plan: No Homicidal Intention: No Insight: Poor Judgment: Poor Assessment & Plan Problem List: (1) DEMENTIA IN OTH DISEASES CLASSD ELSWHR W BEHAVIORAL DISTURB ICD Codes: F02.81 - DEMENTIA IN OTH DISEASES CLASSD ELSWHR W BEHAVIORAL DISTURB Assessment & Plan: On psychiatric evaluation today the patient reports good mood, denies anxiety, denies adrian, denies psychotic symptoms, he denies suicidal or homicidal ideation, however the patient is quite confused, uses confabulatory information to fill up memory, he does not seem to be insightful about his report the recent combative and aggressive behavior in his nursing facility. Patient will be admitted in psychiatry for longitudinal observation, stabilization and safety. We'll start Seroquel 25 minute was twice a day, his Depakote 500 mg twice a day, also sertraline 50 mg. lay out worker intervention for collateral information, psychosocial assessment, individual and group therapies, coordinating a safe discharge planning. Assessment & Plan Estimated LOS: days Stephen Smith MD 3, 2018 13:04
[2017-05-21] MEDS: SERTRALINE HCL 50 MG TAB PO SCH (15:09)
[2017-05-21] MEDS: cloNIDine HCL 0.1 MG TAB PO SCH ×2 (15:09→21:32)
[2017-05-21] MEDS: QUEtiapine FUMARATE 25 MG TAB PO SCH ×3 (15:09→20:59)
[2017-05-21] MEDS: levETIRAcetam 500 MG TAB PO SCH ×2 (15:10→20:59)
--- NOTE | 2017-05-21 15:34 | PD.CONS ---
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 Patient had recently been here at the hospital a few days ago and was discharged back to the nursing facility. Patient was noted to become more confused and combative there. Patient is pleasantly confused. But in no distress at this time We have been asked to help regarding medical management regarding hypertension seizure disorder Patient is currently in the psychiatric unit Review of Systems Constitutional: DENIES: Diaphoretic episodes, Fatigue, Fever, Weight gain, Weight loss, Chills, Dizziness, Change in appetite, Night Sweats Endocrine: DENIES: Heat/cold intolerance, Polydipsia, Polyuria, Polyphagia Eyes: DENIES: Blurred vision, Diplopia, Eye inflammation, Eye pain, Vision loss , Photosensitivity, Double Vision Ears, nose, mouth, throat: DENIES: Tinnitus, Hearing loss, Vertigo, Nasal discharge, Oral lesions, Throat pain, Hoarseness, Ear Pain, Running Nose Respiratory: DENIES: Apneas, Cough, Snoring, Wheezing, Hemoptysis, Sputum production, Shortness of breath Cardiovascular: DENIES: Chest pain, Palpitations, Syncope, Dyspnea on Exertion , PND, Lower Extremity Edema, Orthopnea Gastrointestinal: DENIES: Abdominal pain, Black stools, Bloody stools, Constipation, Diarrhea, Nausea, Vomiting, Difficulty Swallowing Genitourinary: DENIES: Urinary frequency, Urinary incontinence, Urgency, Hematuria, Dysuria, Nocturia Musculoskeletal: DENIES: Joint pain, Muscle aches, Stiffness, Joint Swelling, Back pain, Neck pain Integumentary: DENIES: Abnormal pigmentation, Nail changes, Pruritus, Rash Hematologic/lymphatic: DENIES: Bruising, Lymphadenopathy Immunologic/allergic: DENIES: Eczema, Urticaria Neurologic: COMPLAINS OF: Seizures, DENIES: Abnormal gait, Headache, Localized weakness, Paresthesias, Speech Problems, Tremor, Poor Balance Psychiatric: COMPLAINS OF: Anxiety, Confusion, Mood changes, Agitation, DENIES : Depression, Hallucinations Except as stated in HPI: all other systems reviewed are Neg Past Family Social History Allergies: Coded Allergies: No Known Allergies (Verified Allergy, Unknown, 05/10/17) Past Medical History Depression Diminished hearing Irritable bowel syndrome Hypertension Herniated disks Posttraumatic stress disorder PTSD Enlarged prostate Seizure disorder Reported Medications Reported Meds & Active Scripts Active Seroquel (Quetiapine Fumarate) 25 Mg Tab 25 Mg PO QID Catapres (Clonidine) 0.1 Mg Tab 0.1 Mg PO Q8HR Metoprolol Tartrate 25 Mg Tab 12.5 Mg PO BID Lisinopril 20 Mg Tab 20 Mg PO DAILY Sertraline (Sertraline HCl) 50 Mg Tab 50 Mg PO DAILY Docusate Sodium-Senna (Sennosides-Docusate Sodium) 8.6-50 Mg Tab 1 Tab PO BID Melatonin 5 Mg Tab 3 Mg PO HS Levetiracetam 1,000 Mg Tab 1,000 Mg PO Q8HR Vimpat (Lacosamide) 200 Mg Tab 200 Mg PO Q12HR Aspirin Low Dose (Aspirin) 81 Mg Chew 81 Mg CHEW DAILY Amlodipine (Amlodipine Besylate) 5 Mg Tab 5 Mg PO BID Reported Valproic Acid 250 Mg Cap 500 Mg PO BID Tylenol (Acetaminophen) 325 Mg Tab 325 Mg PO Q8HR PRN Tylenol (Acetaminophen) 325 Mg Tab 325 Mg PO Q8HR PRN Milk of Magnesia Liq (Magnesium Hydroxide) 400 Mg/5 Ml Susp 30 Ml PO DAILY PRN Diphenhydramine (Diphenhydramine HCl) 25 Mg Cap 25 Mg PO Q4H PRN Polyethylene Glycol 3350 Powder (Polyethylene Glycol) 17 Gram Pow 17 Gm PO DAILY PRN Nature's Tears Eye Drops (Dextran 70/Hypromellose) 0.1 %-0.3 % Drops 1 Drop EACH EYE Q6HR PRN Multi-Vitamin Daily (Multiple Vitamin) 1 Tab Tab 1 Tab PO DAILY Dulcolax Supp (Bisacodyl) 10 Mg Supp 10 Mg RECTAL DAILY PRN Vitamin B-12 (Cyanocobalamin) 1,000 Mcg Tab 1,000 Mcg PO DAILY Active Ordered Medications Current Medications Hydroxyzine HCl (Atarax) 50 mg Q6H PRN PO ANXIETY; Start 05/20/17 at 23:45 Diphenhydramine HCl (Benadryl) 50 mg Q6H PRN PO MILD ANXIETY, EPS; Start at 23:45 Diphenhydramine HCl (Benadryl Inj) 50 mg Q6H PRN IM MILD ANXIETY, EPS; Start at 23:45 Diphenhydramine HCl (Benadryl) 50 mg HS PRN PO INSOMNIA; Start 05/20/17 at 23:45 Diphenhydramine HCl (Benadryl Inj) 50 mg HS PRN IM INSOMNIA Last administered on 05/20/17at 23:47; Start 05/20/17 at 23:45 Acetaminophen (Tylenol) 650 mg Q4H PRN PO Pain 1-5 or Temp >101F; Start at 23:45 Magnesium Hydroxide (Milk Of Magnesia Liq) 30 ml DAILY PRN PO CONSTIPATION; Start 05/20/17 at 23:45 Al Hydrox/Mg Hydrox/Simethicone (Mag-Al Plus Susp Liq) 30 ml Q6H PRN PO DYSPEPSIA; Start 05/20/17 at 23:45 Amlodipine Besylate (Norvasc) 5 mg BID PO Last administered on 05/21/17 11:28; Start 05/21/17 at 09:00 Aspirin (Aspirin Chew) 81 mg DAILY CHEW Last administered on 05/21/17 11:28; Start 05/21/17 at 09:00 Clonidine (Catapres) 0.1 mg Q8HR PO Last administered on 05/21/17at 15:09; Start 05/21/17 at 14:00 Cyanocobalamin (Vitamin B12) 1,000 mcg DAILY PO Last administered on 05/21/17 09:00; Start 05/21/17 at 09:00 Lacosamide (Vimpat) 200 mg Q12HR PO Last administered on 05/21/17 11:24; Start 05/21/17 at 09:00 Levetriacetam (Keppra) 1,000 mg Q8HR PO Last administered on 05/21/17 15:10; Start 05/21/17 at 14:00 Lisinopril (Prinivil) 20 mg DAILY PO Last administered on 05/21/17 11:25; Start 05/21/17 at 09:00 Metoprolol Tartrate (Lopressor) 12.5 mg BID PO Last administered on 05/21/17 11 :27; Start 05/21/17 at 09:00 Valproic Acid (Depakene) 500 mg BID PO Last administered on 05/21/17at 11:39; Start 05/21/17 at 09:00 Patient Own Medication PT OWN MED: NATUR... Q6HR PRN EACH EYE DRY EYE; Start at 08:45; Status Future Hold Multivitamins (Theragran) 1 tab DAILY PO Last administered on 05/21/17at 11:25; Start 05/21/17 at 09:00 Quetiapine Fumarate (SEROquel) 25 mg QID PO Last administered on 05/21/17at 15:09 ; Start 05/21/17 at 13:00 Sertraline HCl (Zoloft) 50 mg DAILY PO Last administered on 05/21/17at 15:09; Start 05/21/17 at 13:00 Family History Psychiatric disorders in the family Social History Denies any tobacco alcohol or illicits Physical Exam Vital Signs Vital Signs Date Time Temp Pulse Resp B/P (MAP) Pulse Ox O2 Delivery O2 Flow Rate FiO2 05/21/17 06:21 98.4 68 16 143/68 (93) 98 05/21/17 01:06 98.1 81 20 149/80 (103) 05/21/17 00:47 05/20/17 22:57 98.1 104 18 109/72 (84) 99 Room Air 05/20/17 20:45 99.6 76 18 155/100 (118) 99 Room Air Physical Exam GENERAL: This is a well-nourished, well-developed patient, in no apparent distress. SKIN: No rashes, ecchymoses or lesions. Cool and dry. HEAD: Atraumatic. Normocephalic. No temporal or scalp tenderness. EYES: Pupils equal round and reactive. Extraocular motions intact. No scleral icterus. No injection or drainage. ENT: Nose without bleeding, purulent drainage or septal hematoma. Throat without erythema, tonsillar hypertrophy or exudate. Uvula midline. Airway patent. NECK: Trachea midline. No JVD or lymphadenopathy. Supple, nontender, no meningeal signs. CARDIOVASCULAR: Regular rate and rhythm without murmurs, gallops, or rubs. S1- S2 no S3 or S4 RESPIRATORY: Clear to auscultation. Breath sounds equal bilaterally. No wheezes , rales, or rhonchi. GASTROINTESTINAL: Abdomen soft, non-tender, nondistended. No hepato-splenomegaly , or palpable masses. No guarding. MUSCULOSKELETAL: Extremities without clubbing, cyanosis, or edema. No joint tenderness, effusion, or edema noted. No calf tenderness. Negative Homans sign bilaterally. NEUROLOGICAL: Awake and alert. Cranial nerves II through XII intact. Motor and sensory grossly within normal limits. Five out of 5 muscle strength in all muscle groups. Normal speech. Insight and judgment is limited Mood and behavior is somewhat appropriate at this time Laboratory Laboratory Tests Test 05/20/17 20:29 05/21/17 09:30 White Blood Count 15.6 Red Blood Count 4.25 Hemoglobin 13.4 Hematocrit 38.8 Mean Corpuscular Volume 91.2 Mean Corpuscular Hemoglobin 31.4 Mean Corpuscular Hemoglobin Concent 34.5 Red Cell Distribution Width 14.0 Platelet Count 310 Mean Platelet Volume 8.1 Neutrophils (%) (Auto) 77.3 Lymphocytes (%) (Auto) 14.9 Monocytes (%) (Auto) 6.4 Eosinophils (%) (Auto) 0.5 Basophils (%) (Auto) 0.9 Neutrophils # (Auto) 12.1 Lymphocytes # (Auto) 2.3 Monocytes # (Auto) 1.0 Eosinophils # (Auto) 0.1 Basophils # (Auto) 0.1 CBC Comment DIFF FINAL Differential Comment Blood Urea Nitrogen 36 Creatinine 1.77 Random Glucose 85 Total Protein 8.3 Albumin 4.7 Calcium Level 9.6 Alkaline Phosphatase 123 Aspartate Amino Transf (AST/SGOT) 25 Alanine Aminotransferase (ALT/SGPT) 25 Total Bilirubin 0.4 Sodium Level 140 Potassium Level 4.6 Chloride Level 105 Carbon Dioxide Level 23.0 Anion Gap 12 Estimat Glomerular Filtration Rate 38 Valproic Acid (Depakene) Level 54 Urine Color YELLOW Urine Turbidity CLEAR Urine pH 5.5 Urine Specific [place] 1.020 Urine Protein TRACE Urine Glucose (UA) NEG Urine Ketones 10 Urine Occult Blood NEG Urine Nitrite NEG Urine Bilirubin NEG Urine Urobilinogen LESS THAN 2.0 Urine Leukocyte Esterase NEG Urine WBC LESS THAN 1 Urine Bacteria RARE Urine Hyaline Casts 1 Urine Mucus FEW Microscopic Urinalysis Comment CULT NOT INDICATED Result Diagram: 05/20/17202805/20/172028 Imaging Last Impressions Chest X-Ray 05/21/17 0000 Signed Impressions: Service Date/Time: Sunday, May 21, 2017 09:08 - CONCLUSION: Normal examination. Denis Fitzgerald MD Assessment and Plan Assessment and Plan Psychiatric disorders will defer to psychiatry Hypertension we will continue on Catapres and metoprolol and lisinopril and aspirin and amlodipine Seizure disorder continue on Vimpat and other seizure medications PTSD will defer to psychiatry Mild leukocytosis will repeat Renal insufficiency we will monitor laboratory data Urinalysis so far is negative Chest x-ray is negative GI and DVT prophylaxis with ambulation Code Status Full code Discussed Condition With Patient and RN Bret Gomez DO May 21, 2017 15:34
[2017-05-21 18:40] VITALS: BP 77/43; PULSE 67; RESP 16; TEMP 98.4; O2SAT 98
[2017-05-22 06:00] VITALS: BP 124/60; PULSE 62; RESP 17; TEMP 97.4; O2SAT 96
[2017-05-22] MEDS: cloNIDine HCL 0.1 MG TAB PO SCH ×3 (06:10→21:27)
[2017-05-22] MEDS: levETIRAcetam 500 MG TAB PO SCH ×3 (06:11→21:55)
[2017-05-22] MEDS: LACOSAMIDE 100 MG TAB PO SCH ×2 (08:07→20:57)
[2017-05-22] MEDS: CYANOCOBALAMIN 1,000 MCG TAB PO SCH (08:08)
[2017-05-22] MEDS: ASPIRIN 81 MG CHEW TAB CHEW SCH (08:08)
[2017-05-22] MEDS: VALPROIC ACID 250 MG CAP PO SCH ×2 (08:08→20:56)
[2017-05-22] MEDS: QUEtiapine FUMARATE 25 MG TAB PO SCH ×4 (08:09→20:57)
[2017-05-22] MEDS: MULTIVITAMIN TAB PO SCH (08:09)
[2017-05-22] MEDS: amLODIPine BESYLATE 5 MG TAB PO SCH ×2 (08:09→21:00)
[2017-05-22] MEDS: LISINOPRIL 20 MG TAB PO SCH (08:09)
[2017-05-22] MEDS: SERTRALINE HCL 50 MG TAB PO SCH (08:10)
[2017-05-22] MEDS: METOPROLOL TARTRATE 25 MG TAB PO SCH ×2 (08:10→21:00)
[2017-05-22 11:30] LABS: ALBUMIN 3.7 GM/DL (3.4-5.0); ALKALINE PHOSPHATASE 100 U/L (45-117); ALT (GPT) 20 U/L (12-78); AST (GOT) 16 U/L (15-37); BICARBONATE 26.1 MEQ/L (21.0-32.0); BLOOD UREA NITROGEN 56 MG/DL (7-18); CALCIUM 8.8 MG/DL (8.5-10.1); CHLORIDE 107 MEQ/L (98-107); CREATININE 1.37 MG/DL (0.60-1.30); FREE T4 1.06 NG/DL (0.76-1.46); GLOMERULAR FILTRATION RATE 51 ML/MIN (>89); GLUCOSE,RANDOM 88 MG/DL (74-106); MAGNESIUM 2.6 MG/DL (1.5-2.5); PHOSPHORUS 4.2 MG/DL (2.5-4.9); SODIUM (NA) 141 MEQ/L (136-145); TOTAL BILIRUBIN ADULT 0.4 MG/DL (0.2-1.0); TOTAL PROTEIN 7.4 GM/DL (6.4-8.2)
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
[2017-05-22 16:05] LABS: AUTOMATED NEUTROPHIL # 4.9 TH/MM3 (1.8-7.7); BASOPHIL # 0.1 TH/MM3 (0-0.2); EOSINOPHIL # 0.4 TH/MM3 (0-0.4); EOSINOPHIL % 4.7 % (0.0-4.0); HEMATOCRIT 30.8 % (39.0-51.0); HEMOGLOBIN 11.2 GM/DL (13.0-17.0); LYMPH % 27.3 % (9.0-44.0); LYMPHOCYTE # 2.3 TH/MM3 (1.0-4.8); MEAN PLATELET VOLUME 7.8 FL (7.0-11.0); MONO % 8.6 % (0.0-8.0); MONOCYTE # 0.7 TH/MM3 (0-0.9); NEUT % 58.4 % (16.0-70.0); PLATELET COUNT 247 TH/MM3 (150-450); RED BLOOD COUNT 3.39 MIL/MM3 (4.50-5.90); RED CELL DISTRIBUTION WIDTH 13.9 % (11.6-17.2); WHITE BLOOD COUNT 8.4 TH/MM3 (4.0-11.0)
[2017-05-22 16:06] LABS: MEAN CORPUSCULAR HGB CONC 36.2 % (32.0-36.0)
[2017-05-22 18:07] VITALS: BP 101/51; PULSE 68; RESP 18; TEMP 97.1; O2SAT 97
--- NOTE | 2017-05-22 19:21 | HHI.PR ---
Subjective Remarks NOT SEEN Objective Vitals Vital Signs Date Time Temp Pulse Resp B/P (MAP) Pulse Ox O2 Delivery O2 Flow Rate FiO2 05/22/17 18:07 97.1 68 18 101/51 (68) 97 05/22/17 06:00 97.4 62 17 124/60 (81) 96 I/O 05/21/17 05/21/17 05/21/17 05/22/17 05/22/17 05/22/17 06:59 14:59 22:59 06:59 14:59 22:59 Intake Total 360 ml 600 ml 480 ml Balance 360 ml 600 ml 480 ml Intake Oral 360 ml 600 ml 480 ml Result Diagram: 05/22/17 1526 05/22/17 1022 Imaging Last Impressions Chest X-Ray 05/21/17 0000 Signed Impressions: Service Date/Time: Sunday, May 21, 2017 09:08 - CONCLUSION: Normal examination. Denis Fitzgerald MD Objective Remarks GENERAL: This is a well-nourished, well-developed patient, in no apparent distress. SKIN: No rashes, ecchymoses or lesions. Cool and dry. Bilateral UE wounds dressed with multiple skin tears HEAD: Atraumatic. Normocephalic. No temporal or scalp tenderness. EYES: Pupils equal round and reactive. Extraocular motions intact. No scleral icterus. No injection or drainage. ENT: Nose without bleeding, purulent drainage or septal hematoma. Throat without erythema, tonsillar hypertrophy or exudate. Uvula midline. Airway patent. NECK: Trachea midline. No JVD or lymphadenopathy. Supple, nontender, no meningeal signs. CARDIOVASCULAR: Regular rate and rhythm without murmurs, gallops, or rubs. S1- S2 no S3 or S4 RESPIRATORY: Clear to auscultation. Breath sounds equal bilaterally. No wheezes , rales, or rhonchi. GASTROINTESTINAL: Abdomen soft, non-tender, nondistended. No guarding. MUSCULOSKELETAL: Extremities without clubbing, cyanosis, or edema. No joint tenderness, effusion, or edema noted. No calf tenderness. Negative Homans sign bilaterally. NEUROLOGICAL: Awake and alert. Cranial nerves II through XII intact. Motor and sensory grossly within normal limits. Five out of 5 muscle strength in all muscle groups. Normal speech. Insight and judgment is limited Mood and behavior is somewhat appropriate at this time Procedures None A/P Problem List: (1) HTN (hypertension) ICD Code: I10 - Essential (primary) hypertension (2) Tobacco abuse ICD Code: Z72.0 - Tobacco use (3) Seizure disorder ICD Code: G40.909 - Epilepsy, unspecified, not intractable, without status epilepticus (4) Chronic post-traumatic stress disorder (PTSD) after combat ICD Code: F43.12 - Post-traumatic stress disorder, chronic Assessment and Plan Psychiatric disorders/PTSD will defer to psychiatry Hypertension we will continue on Catapres, metoprolol, lisinopril and amlodipine Seizure disorder continue on Vimpat and Keppra. Sz precautions Mild leukocytosis. Improved KEN. Improving check CK if worse Wound care GI and DVT prophylaxis with ambulation Emiliano Aguilar MD May 22, 2017 19:21
[2017-05-22] MEDS: ALUMINUM/MAGNESIUM/SIMETH 30 ML CUP PO PRN (22:02)
[2017-05-23 05:18] VITALS: BP 94/56; PULSE 62; RESP 17; TEMP 97.7; O2SAT 97
[2017-05-23] MEDS: cloNIDine HCL 0.1 MG TAB PO SCH ×3 (06:00→20:45)
[2017-05-23] MEDS: ALUMINUM/MAGNESIUM/SIMETH 30 ML CUP PO PRN ×3 (06:27→22:00)
[2017-05-23] MEDS: levETIRAcetam 500 MG TAB PO SCH ×3 (06:27→21:59)
[2017-05-23 08:16] VITALS: BP 117/59; PULSE 73
[2017-05-23] MEDS: ASPIRIN 81 MG CHEW TAB CHEW SCH (08:40)
[2017-05-23] MEDS: SERTRALINE HCL 50 MG TAB PO SCH (08:40)
[2017-05-23] MEDS: amLODIPine BESYLATE 5 MG TAB PO SCH ×2 (08:40→20:49)
[2017-05-23] MEDS: LISINOPRIL 20 MG TAB PO SCH (08:40)
[2017-05-23] MEDS: VALPROIC ACID 250 MG CAP PO SCH ×2 (08:40→20:47)
[2017-05-23] MEDS: METOPROLOL TARTRATE 25 MG TAB PO SCH ×2 (08:40→20:48)
[2017-05-23] MEDS: CYANOCOBALAMIN 1,000 MCG TAB PO SCH (08:41)
[2017-05-23] MEDS: LACOSAMIDE 100 MG TAB PO SCH ×2 (08:41→20:52)
[2017-05-23] MEDS: MULTIVITAMIN TAB PO SCH (08:41)
[2017-05-23] MEDS: QUEtiapine FUMARATE 25 MG TAB PO SCH ×4 (08:41→20:49)
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
[2017-05-23 13:00] VITALS: BP 121/63; PULSE 68
[2017-05-23] MEDS ORDERED: hydrOXYzine HCL 50 MG TAB PO PRN (15:00)
--- NOTE | 2017-05-23 15:04 | HHI.PYPN ---
Subjective Remarks Patient seen in his room with nurse Matilde, chart reviewed, patient discussed with nurse. Calm laying in bed vaguely remember me from prior contact. Continues diffusely confused. His no significant recollection of behaviors that led to this hospitalization. He does denies suicidality with me does deny voices. He is compliant with his medication. For now continue treatment Review of Systems Except as stated in HPI: all other systems reviewed are Neg Mental Status Examination Appearance: Appropriate Consciousness: Alert Orientation: x4, Person Motor Activity: Normal gait Speech: Unremarkable Language: Adequate Fund of Knowledge: Adequate Attention and Concentration: Adequate Memory: Impaired Mood: Sad Thought Process & Associations: Loose associations Thought Content: Bizarre thinking Hallucination Type: None Delusion Type: Bizarre, Paranoid Suicidal Ideation: No Suicidal Plan: No Suicidal Intention: No Homicidal Ideation: No Homicidal Plan: No Homicidal Intention: No Insight: Poor Judgment: Poor Results Labs Test 05/22/17 15:26 White Blood Count 8.4 TH/MM3 Red Blood Count 3.39 MIL/MM3 Hemoglobin 11.2 GM/DL Hematocrit 30.8 % Mean Corpuscular Volume 91.0 FL Mean Corpuscular Hemoglobin 33.0 PG Mean Corpuscular Hemoglobin Concent 36.2 % Red Cell Distribution Width 13.9 % Platelet Count 247 TH/MM3 Mean Platelet Volume 7.8 FL Neutrophils (%) (Auto) 58.4 % Lymphocytes (%) (Auto) 27.3 % Monocytes (%) (Auto) 8.6 % Eosinophils (%) (Auto) 4.7 % Basophils (%) (Auto) 1.0 % Neutrophils # (Auto) 4.9 TH/MM3 Lymphocytes # (Auto) 2.3 TH/MM3 Monocytes # (Auto) 0.7 TH/MM3 Eosinophils # (Auto) 0.4 TH/MM3 Basophils # (Auto) 0.1 TH/MM3 CBC Comment DIFF FINAL Differential Comment Vitals/IOs Vital Signs Date Time Temp Pulse Resp B/P (MAP) Pulse Ox O2 Delivery O2 Flow Rate FiO2 05/23/17 13:00 68 121/63 (82) 05/23/17 05:18 97.7 17 97 05/20/17 22:57 Room Air Intake and Output 05/23/17 05/23/17 05/24/17 08:00 16:00 00:00 Intake Total 360 ml Output Total 1 ml Balance 359 ml Assessment & Plan Problem List: (1) DEMENTIA IN OTH DISEASES CLASSD ELSWHR W BEHAVIORAL DISTURB ICD Codes: F02.81 - DEMENTIA IN OTH DISEASES CLASSD ELSWHR W BEHAVIORAL DISTURB (2) ALZHEIMER'S DISEASE WITH LATE ONSET ICD Codes: G30.1 - ALZHEIMER'S DISEASE WITH LATE ONSET Assessment & Plan Estimated LOS: days patient continues markedly demented confused, showing no insight into disease, showing no recollection of behaviors and lift to this hospitalization, initial psychiatric template orders completed by me along with med reconciliation Justification for Cont. Inpt. This time patient decompensated placed in a lower level of care Discharge Planning Who holds returned to his facility Jona Lynn MD May 23, 2017 15:04
[2017-05-23 16:08] LABS: HEMOGLOBIN A1C 5.2 % (4.3-6.0)
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
[2017-05-23 18:28] VITALS: BP 145/68; PULSE 79; TEMP 98.1
[2017-05-24] MEDS: levETIRAcetam 500 MG TAB PO SCH ×3 (05:56→21:45)
[2017-05-24] MEDS: ALUMINUM/MAGNESIUM/SIMETH 30 ML CUP PO PRN ×2 (06:05→21:46)
[2017-05-24 06:10] VITALS: BP 135/88; PULSE 67; RESP 17; TEMP 98; O2SAT 99
[2017-05-24] MEDS: VALPROIC ACID 250 MG CAP PO SCH ×2 (08:25→21:45)
[2017-05-24] MEDS: LACOSAMIDE 100 MG TAB PO SCH ×2 (08:25→21:45)
[2017-05-24] MEDS: QUEtiapine FUMARATE 25 MG TAB PO SCH ×3 (08:26→21:48)
[2017-05-24] MEDS: METOPROLOL TARTRATE 25 MG TAB PO SCH ×2 (08:26→21:46)
[2017-05-24] MEDS: ASPIRIN 81 MG CHEW TAB CHEW SCH (08:26)
[2017-05-24] MEDS: cloNIDine HCL 0.1 MG TAB PO SCH ×2 (08:26→21:48)
[2017-05-24] MEDS: amLODIPine BESYLATE 5 MG TAB PO SCH ×2 (08:26→21:48)
[2017-05-24] MEDS: LISINOPRIL 10 MG TAB PO SCH (08:26)
[2017-05-24] MEDS: MULTIVITAMIN TAB PO SCH (08:26)
[2017-05-24] MEDS: SERTRALINE HCL 50 MG TAB PO SCH (08:26)
[2017-05-24] MEDS: CYANOCOBALAMIN 1,000 MCG TAB PO SCH (08:29)
[2017-05-24 08:53] LABS: AUTOMATED NEUTROPHIL # 7.3 TH/MM3 (1.8-7.7); BASOPHIL # 0.1 TH/MM3 (0-0.2); BASOPHIL % 0.6 % (0.0-2.0); EOSINOPHIL # 0.3 TH/MM3 (0-0.4); EOSINOPHIL % 2.8 % (0.0-4.0); HEMATOCRIT 33.5 % (39.0-51.0); HEMOGLOBIN 11.7 GM/DL (13.0-17.0); LYMPH % 23.9 % (9.0-44.0); LYMPHOCYTE # 2.7 TH/MM3 (1.0-4.8); MEAN CELL VOLUME 90.7 FL (80.0-100.0); MEAN CORPUSCULAR HEMOGLOBIN 31.8 PG (27.0-34.0); MEAN PLATELET VOLUME 8.2 FL (7.0-11.0); MONO % 7.7 % (0.0-8.0); MONOCYTE # 0.9 TH/MM3 (0-0.9); PLATELET COUNT 298 TH/MM3 (150-450); RED BLOOD COUNT 3.69 MIL/MM3 (4.50-5.90); RED CELL DISTRIBUTION WIDTH 13.6 % (11.6-17.2); WHITE BLOOD COUNT 11.3 TH/MM3 (4.0-11.0)
[2017-05-24 09:21] LABS: ALBUMIN 3.8 GM/DL (3.4-5.0); AST (GOT) 10 U/L (15-37); BICARBONATE 25.2 MEQ/L (21.0-32.0); BLOOD UREA NITROGEN 54 MG/DL (7-18); CHLORIDE 105 MEQ/L (98-107); CREATININE 1.19 MG/DL (0.60-1.30); GLOMERULAR FILTRATION RATE 60 ML/MIN (>89); GLUCOSE,RANDOM 96 MG/DL (74-106); MAGNESIUM 2.6 MG/DL (1.5-2.5); SODIUM (NA) 140 MEQ/L (136-145)
[2017-05-24 09:27] LABS: ALKALINE PHOSPHATASE 95 U/L (45-117); ALT (GPT) 16 U/L (12-78); PHOSPHORUS 2.7 MG/DL (2.5-4.9); TOTAL BILIRUBIN ADULT 0.3 MG/DL (0.2-1.0); TOTAL PROTEIN 7.3 GM/DL (6.4-8.2)
--- NOTE | 2017-05-24 13:12 | HHI.PYPN ---
Subjective Remarks Patient seen in his room with counselor edward. Patient alert initially somewhat, pleasant with us however when we discussed placement issues with him returning to undergo palms became more angry irritable and confused. Will increase Seroquel to 50 mg 4 times a day. Review of Systems Except as stated in HPI: all other systems reviewed are Neg Mental Status Examination Appearance: Appropriate Consciousness: Alert Orientation: x4, Person Motor Activity: Normal gait Speech: Unremarkable Language: Adequate Fund of Knowledge: Adequate Attention and Concentration: Adequate Memory: Impaired Mood: Sad Thought Process & Associations: Loose associations Thought Content: Bizarre thinking Hallucination Type: None Delusion Type: Bizarre, Paranoid Suicidal Ideation: No Suicidal Plan: No Suicidal Intention: No Homicidal Ideation: No Homicidal Plan: No Homicidal Intention: No Insight: Poor Judgment: Poor Results Labs Test 05/24/17 07:25 White Blood Count 11.3 TH/MM3 Red Blood Count 3.69 MIL/MM3 Hemoglobin 11.7 GM/DL Hematocrit 33.5 % Mean Corpuscular Volume 90.7 FL Mean Corpuscular Hemoglobin 31.8 PG Mean Corpuscular Hemoglobin Concent 35.0 % Red Cell Distribution Width 13.6 % Platelet Count 298 TH/MM3 Mean Platelet Volume 8.2 FL Neutrophils (%) (Auto) 65.0 % Lymphocytes (%) (Auto) 23.9 % Monocytes (%) (Auto) 7.7 % Eosinophils (%) (Auto) 2.8 % Basophils (%) (Auto) 0.6 % Neutrophils # (Auto) 7.3 TH/MM3 Lymphocytes # (Auto) 2.7 TH/MM3 Monocytes # (Auto) 0.9 TH/MM3 Eosinophils # (Auto) 0.3 TH/MM3 Basophils # (Auto) 0.1 TH/MM3 CBC Comment DIFF FINAL Differential Comment Blood Urea Nitrogen 54 MG/DL Creatinine 1.19 MG/DL Random Glucose 96 MG/DL Total Protein 7.3 GM/DL Albumin 3.8 GM/DL Calcium Level 9.0 MG/DL Phosphorus Level 2.7 MG/DL Magnesium Level 2.6 MG/DL Alkaline Phosphatase 95 U/L Aspartate Amino Transf (AST/SGOT) 10 U/L Alanine Aminotransferase (ALT/SGPT) 16 U/L Total Bilirubin 0.3 MG/DL Sodium Level 140 MEQ/L Potassium Level 4.5 MEQ/L Chloride Level 105 MEQ/L Carbon Dioxide Level 25.2 MEQ/L Anion Gap 10 MEQ/L Estimat Glomerular Filtration Rate 60 ML/MIN Vitals/IOs Vital Signs Date Time Temp Pulse Resp B/P (MAP) Pulse Ox O2 Delivery O2 Flow Rate FiO2 05/24/17 06:10 98.0 67 17 135/88 (104) 99 05/20/17 22:57 Room Air Assessment & Plan Problem List: (1) DEMENTIA IN OTH DISEASES CLASSD ELSWHR W BEHAVIORAL DISTURB ICD Codes: F02.81 - DEMENTIA IN OTH DISEASES CLASSD ELSWHR W BEHAVIORAL DISTURB (2) ALZHEIMER'S DISEASE WITH LATE ONSET ICD Codes: G30.1 - ALZHEIMER'S DISEASE WITH LATE ONSET Assessment & Plan Estimated LOS: days patient has confused demented somewhat irritable and mildly paranoid. She medication adjustment above Justification for Cont. Inpt. At this time patient decompensated placed a lower level of care Discharge Planning Hopefully to return to undergo Jona Canela MD May 24, 2017 13:12
[2017-05-24 17:25] VITALS: BP 120/58; PULSE 64; RESP 16; TEMP 98; O2SAT 100
[2017-05-25] MEDS: levETIRAcetam 500 MG TAB PO SCH ×3 (05:31→20:46)
[2017-05-25 05:37] VITALS: BP 107/57; PULSE 68; RESP 17; TEMP 98.5; O2SAT 98
[2017-05-25 06:00] VITALS: BP 107/57; PULSE 68; RESP 17; TEMP 98.5; O2SAT 98
[2017-05-25] MEDS: MULTIVITAMIN TAB PO SCH (08:23)
[2017-05-25] MEDS: ASPIRIN 81 MG CHEW TAB CHEW SCH (08:23)
[2017-05-25] MEDS: QUEtiapine FUMARATE 25 MG TAB PO SCH ×4 (08:23→20:37)
[2017-05-25] MEDS: CYANOCOBALAMIN 1,000 MCG TAB PO SCH (08:24)
[2017-05-25] MEDS: LACOSAMIDE 100 MG TAB PO SCH ×2 (08:24→20:38)
[2017-05-25] MEDS: SERTRALINE HCL 50 MG TAB PO SCH (08:24)
[2017-05-25] MEDS: METOPROLOL TARTRATE 25 MG TAB PO SCH (08:25)
[2017-05-25] MEDS: amLODIPine BESYLATE 5 MG TAB PO SCH (08:25)
[2017-05-25] MEDS: LISINOPRIL 10 MG TAB PO SCH (08:25)
[2017-05-25] MEDS: cloNIDine HCL 0.1 MG TAB PO SCH (08:25)
[2017-05-25] MEDS: VALPROIC ACID 250 MG CAP PO SCH ×2 (08:56→20:37)
--- NOTE | 2017-05-25 11:09 | HHI.PYPN ---
Subjective Remarks Patient seen in his room with nurse Loly salazar counselor Irlanda. Patient laying in bed in no acute distress, stating he was living in [facility]. However he is willing to return to his correction for a period of time. Patient continues diffusely confused and disoriented, but this time no behavioral problems. For now continue treatment Review of Systems Except as stated in HPI: all other systems reviewed are Neg Mental Status Examination Appearance: Appropriate Consciousness: Alert Orientation: x4, Person Motor Activity: Normal gait Speech: Unremarkable Language: Adequate Fund of Knowledge: Adequate Attention and Concentration: Adequate Memory: Impaired Mood: Sad Thought Process & Associations: Loose associations Thought Content: Bizarre thinking Hallucination Type: None Delusion Type: Bizarre, Paranoid Suicidal Ideation: No Suicidal Plan: No Suicidal Intention: No Homicidal Ideation: No Homicidal Plan: No Homicidal Intention: No Insight: Poor Judgment: Poor Results Vitals/IOs Vital Signs Date Time Temp Pulse Resp B/P (MAP) Pulse Ox O2 Delivery O2 Flow Rate FiO2 05/25/17 06:00 98.5 68 17 107/57 (74) 98 Intake and Output 05/25/17 05/25/17 05/26/17 08:00 16:00 00:00 Intake Total 480 ml Balance 480 ml Assessment & Plan Problem List: (1) DEMENTIA IN OTH DISEASES CLASSD ELSWHR W BEHAVIORAL DISTURB ICD Codes: F02.81 - DEMENTIA IN OTH DISEASES CLASSD ELSWHR W BEHAVIORAL DISTURB (2) ALZHEIMER'S DISEASE WITH LATE ONSET ICD Codes: G30.1 - ALZHEIMER'S DISEASE WITH LATE ONSET Assessment & Plan Estimated LOS: days patient continues diffusely confused disoriented though no significant behavior problems at this time Justification for Cont. Inpt. At this time patient will decompensate now placed in an appropriate level of care Discharge Planning Possible return to Jona Beauchamp MD May 25, 2017 11:09
[2017-05-25] MEDS: ALUMINUM/MAGNESIUM/SIMETH 30 ML CUP PO PRN (13:49)
--- NOTE | 2017-05-25 14:47 | PD.WCN.NOT ---
Wound Consult Additional Information: Patient not seen, bilateral arm wounds are noted as skin tears. Appropriate treatment for skin tears of petroleum gauze, secured with rolled gauze is being documented by nursing staff. Continue dressing changes with these dressings. Please [facility] wound care nurse for wound deterioration. Carolynn Worrell [facility] May 25, 2017 14:47
--- NOTE | 2017-05-25 15:13 | PD.TTN ---
Patient Problems 1. Discharge planning 2. Medication compliance 3. Knowledge deficit 4. Lack of coping skills Progress Toward Goals Provider Present: Dr. Samantha Lynn Provider Input: 05/25/17 is compliant and no behavioral issue these past two days, need to know if facility can take him back 05/23/17 Pt. is a readmit. Psychiatric Counselors Present: Irlanda Qureshi LCSW Psych Therapist Input: 05/25/17 facility wants to take him if he is willing to go and will come meet with him today 05/23/17 From [facility] pt. became violent. Group Spec/RT/OT/GUZMAN Present: THOMAS Gonsalez Group Spec/RT/OT/GUZMAN Input: 05/25/17 ddoesnt attend groups 05/23/17- Pt. has not attended any groups since he was readmitted. Irlanda Qureshi LCSW May 25, 2017 15:13
--- NOTE | 2017-05-25 16:57 | HHI.PR ---
Subjective Remarks Follow-up visit hypertension, multiple wounds. She is seen and examined. Patient has no new medical complaints. States he feels well. Denies any dizziness or headaches. Denies any chest pain or shortness of breath. Denies any nausea, vomiting or abdominal pain. Objective Vitals Vital Signs Date Time Temp Pulse Resp B/P (MAP) Pulse Ox O2 Delivery O2 Flow Rate FiO2 05/25/17 06:00 98.5 68 17 107/57 (74) 98 05/25/17 05:37 98.5 68 17 107/57 (74) 98 05/24/17 17:25 98.0 64 16 120/58 (78) 100 I/O 05/24/17 05/24/17 05/24/17 05/25/17 05/25/17 05/25/17 07:00 15:00 23:00 07:00 15:00 23:00 Intake Total 720 ml 2070 ml Balance 720 ml 2070 ml Intake Oral 720 ml 2070 ml # Voids 1 2 2 2 Result Diagram: 05/24/17 0725 05/24/17 0725 Imaging Last Impressions Chest X-Ray 05/21/17 0000 Signed Impressions: Service Date/Time: Sunday, May 21, 2017 09:08 - CONCLUSION: Normal examination. Denis Fitzgerald MD Objective Remarks GENERAL: This is a thin appearing, well-developed male patient, in no apparent distress. Ambulating in the unit. Awake and alert. SKIN: Warm and dry. Multiple bilateral upper extremity skin tears. HEENT: Normocephalic. EOMI. Nose without bleeding. Airway patent. MMM. NECK: Trachea midline. . CARDIOVASCULAR: Regular rate and rhythm without murmurs, gallops, or rubs. RESPIRATORY: Clear to auscultation. Breath sounds equal bilaterally. No wheezes , rales, or rhonchi. GASTROINTESTINAL: Abdomen soft, non-tender, nondistended. MUSCULOSKELETAL: Extremities without clubbing, cyanosis, or edema. NEUROLOGICAL: Awake and alert. Disoriented. No focal neuro deficit. Moves all extremities. Normal speech. PSYCHIATRIC: Confused. Calm and pleasant. Abnormal judgment and insight. Procedures None Medications and IVs Current Medications Medications (Trade) Dose Ordered Sig/Ray Route Start Time Stop Time Status Last Admin (Benadryl) 50 mg Q6H PRN PO 05/20/17 23:45 (Benadryl Inj) 50 mg Q6H PRN IM 05/20/17 23:45 (Benadryl) 50 mg HS PRN PO 05/20/17 23:45 (Benadryl Inj) 50 mg HS PRN IM 05/20/17 23:45 05/20/17 23:47 (Tylenol) 650 mg Q4H PRN PO 05/20/17 23:45 (Milk Of Magnesia Liq) 30 ml DAILY PRN PO 05/20/17 23:45 (Mag-Al Plus Susp Liq) 30 ml Q6H PRN PO 05/20/17 23:45 05/25/17 13:49 (Aspirin Chew) 81 mg DAILY CHEW 05/21/17 09:00 05/25/17 08:23 (Vitamin B12) 1,000 mcg DAILY PO 05/21/17 09:00 05/25/17 08:24 (Vimpat) 200 mg Q12HR PO 05/21/17 09:00 05/25/17 08:24 (Keppra) 1,000 mg Q8HR PO 05/21/17 14:00 05/25/17 13:43 (Lopressor) 12.5 mg BID PO 05/21/17 09:00 05/24/17 21:46 (Depakene) 500 mg BID PO 05/21/17 09:00 05/25/17 08:56 Patient Own Medication PT OWN MED: NATUR... Q6HR PRN EACH EYE 05/21/17 08:45 Future Hold (Theragran) 1 tab DAILY PO 05/21/17 09:00 05/25/17 08:23 (Zoloft) 50 mg DAILY PO 05/21/17 13:00 05/25/17 08:24 (Prinivil) 10 mg DAILY PO 05/24/17 09:00 05/24/17 08:26 (Norvasc) 2.5 mg BID PO 05/23/17 21:00 05/24/17 21:48 (Catapres) 0.1 mg BID PO 05/23/17 21:00 05/24/17 21:48 (Atarax) 50 mg Q6H PRN PO 05/23/17 15:00 05/24/17 21:52 (SEROquel) 50 mg QID PO 05/24/17 18:00 05/25/17 13:43 A/P Problem List: (1) HTN (hypertension) ICD Code: I10 - Essential (primary) hypertension (2) Tobacco abuse ICD Code: Z72.0 - Tobacco use (3) Seizure disorder ICD Code: G40.909 - Epilepsy, unspecified, not intractable, without status epilepticus (4) Chronic post-traumatic stress disorder (PTSD) after combat ICD Code: F43.12 - Post-traumatic stress disorder, chronic Assessment and Plan Patient is a 71-year-old male who came into the ED for increased confusion and combativeness from his nursing facility. PTSD, dementia, Alzheimer's disease -Managed by psychiatry team -UA negative -Chest x-ray negative -Leukocytosis improved, possibly reactive HTN Now hypotensive, asymptomatic -Doses of lisinopril, clonidine and Norvasc all decreased, patient did not receive any today secondary to persistent low BP -hold all BP meds -Clonidine when necessary with parameters -Continue to monitor BP trend Seizure disorder -Continue Keppra 1000 mg every 8 hours, lacosamide 200 mg every 12 hours -Seizure precautions -No seizure activity reported KEN, improving -Avoid nephrotoxins, decrease lisinopril to 10 mg daily - currently on hold, will likely discontinue altogether. -Monitor renal indices as indicated -Encourage p.o. fluid hydration Hypermagnesemia -Avoid magnesium containing products -Hold Maalox and milk of magnesia Multiple bilateral upper extremity skin tears -Wound care recommendations for coverage with petroleum gauze and Kerlix. -Continue wound care DVT prop ambulatory Dilma Del Valle May 25, 2017 16:57
[2017-05-25] MEDS ORDERED: cloNIDine HCL 0.1 MG TAB PO PRN (17:00)
[2017-05-25 17:33] VITALS: BP 160/80; PULSE 87; RESP 16; TEMP 98.6; O2SAT 98
[2017-05-26 05:43] VITALS: BP 169/96; PULSE 86; RESP 16; TEMP 97.6; O2SAT 96
[2017-05-26] MEDS: levETIRAcetam 500 MG TAB PO SCH (05:50)
[2017-05-26] MEDS: VALPROIC ACID 250 MG CAP PO SCH (08:41)
[2017-05-26] MEDS: QUEtiapine FUMARATE 25 MG TAB PO SCH ×2 (08:41→12:02)
[2017-05-26] MEDS: MULTIVITAMIN TAB PO SCH (08:42)
[2017-05-26] MEDS: LACOSAMIDE 100 MG TAB PO SCH (08:42)
[2017-05-26] MEDS: ASPIRIN 81 MG CHEW TAB CHEW SCH (08:42)
[2017-05-26] MEDS: SERTRALINE HCL 50 MG TAB PO SCH (08:42)
[2017-05-26] MEDS: CYANOCOBALAMIN 1,000 MCG TAB PO SCH (08:43)
[2017-05-26 09:21] VITALS: BP 169/96; PULSE 86; RESP 16; TEMP 97.6; O2SAT 96
[2017-05-26] MEDS ORDERED: SERT-132 PO (11:30)
[2017-05-26] MEDS ORDERED: VIMP200T PO (11:30)
[2017-05-26] MEDS ORDERED: CLON.1 PO (11:30)
[2017-05-26] MEDS ORDERED: LEVE10003 PO (11:30)
[2017-05-26] MEDS ORDERED: VALP250C PO (11:30)
[2017-05-26] MEDS ORDERED: METO25TA3 PO (11:30)
[2017-05-26] MEDS ORDERED: AMLO5 PO (11:30)
[2017-05-26] MEDS ORDERED: SERO50TA PO (11:30)
[2017-05-26] MEDS ORDERED: ASPI81CH6 CHEW (11:30)
[2017-05-26] MEDS ORDERED: LISI10TA3 PO (11:30)
--- NOTE | 2017-05-26 11:38 | HHI.DS ---
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 Lynn, documentation review, he has no previous suicidal attempts, he is on Seroquel 25 mg twice a day, Depakote 500 mg twice a day, Depakote level is 54, sertraline 50 mg, medical history hypertension, seizures, who was brought this time from his [facility] [place] due to combative and delusional behavior. Documentation was reviewed. Case was discussed with nurse in charge. On psychiatric evaluation the patient is found calm, cooperative, but he is kind of confused. Surprisingly the patient is fully oriented 3,. He says that the reason he is hospitalized is because he has seizures and headache, but he does not seem to be aware or insightful about aggressive behavior in custodial. The patient is quite confabulative he says that he has been depressed because his and his girlfriend, both want to break up with him. He says that he is looking forward to try another woman to become his girlfriend. He reports good mood, denies suicidal and homicidal ideation, he denies visual and auditory hallucinations. She doesn't seem to remember his recent hospitalization [facility], he says that he has history of PTSD, but he is not taking medications. During my evaluation no agitation, no aggressive behavior, and increased paranoia present. Tobacco Use In Past 30 Days: No Tobacco Past 30 Days Alcohol Use: 2-4 Times Per Month Hospital Course Patient's hospital course was uneventful, needed some occasional interventions she was no behavior problems calmly seated isolate to some extent. His cognitive deficits his confusion and disorientation persisted. He showed some mild resistance to return to [facility] but is willing to do that. He denies suicidality homicidality voices or visions. At the subacromial patient has reached maximum benefit of this hospitalization thus will be discharged today to [facility] 1 month follow-up medical services that facility Results Blood Pressure 169 / 96 Vital Signs Date Time Temp Pulse Resp B/P (MAP) Pulse Ox O2 Delivery O2 Flow Rate FiO2 05/26/17 09:21 97.6 86 16 169/96 (120) 96 Laboratory Tests Test 05/24/17 07:25 White Blood Count 11.3 TH/MM3 (4.0-11.0) Red Blood Count 3.69 MIL/MM3 (4.50-5.90) Hemoglobin 11.7 GM/DL (13.0-17.0) Hematocrit 33.5 % (39.0-51.0) Blood Urea Nitrogen 54 MG/DL (7-18) Magnesium Level 2.6 MG/DL (1.5-2.5) Aspartate Amino Transf (AST/SGOT) 10 U/L (15-37) Estimat Glomerular Filtration Rate 60 ML/MIN (>89) Laboratory Results Test 05/20/17 20:29 05/22/17 10:22 Valproic Acid (Depakene) Level 54 MCG/ML (50-100) Hemoglobin A1c 5.2 % (4.3-6.0) Summary of Procedures None done Imaging Last Impressions Chest X-Ray 05/21/17 0000 Signed Impressions: Service Date/Time: Sunday, May 21, 2017 09:08 - CONCLUSION: Normal examination. Denis Fitzgerald MD Pending results at discharge: No Medications # of Antipsychotic meds at D/C: 1 Approp Antipsych med options 1 - Minimum of three failed multiple trials of monotherapy. 2 - Documented plan to taper to monotherapy due to previous use of multiple meds OR cross-taper in progress at D/C. 3 - Documentation of augmentation of Clozapine. 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 Diagnosis: Secondary ICD Code: F43.12 - Post-traumatic stress disorder, chronic (2) ALZHEIMER'S DISEASE WITH LATE ONSET Diagnosis: Principal ICD Code: G30.1 - ALZHEIMER'S DISEASE WITH LATE ONSET (3) DEMENTIA IN OTH DISEASES CLASSD ELSWHR W BEHAVIORAL DISTURB Diagnosis: Principal ICD Code: F02.81 - DEMENTIA IN OTH DISEASES CLASSD ELSWHR W BEHAVIORAL DISTURB Pt Condition on Discharge: Stable Discharge Disposition: Discharge to SNF Discharge Instructions Diet Instructions: As Tolerated, No Restrictions Activities you can perform: Regular-No Restrictions Scheduled Appointment: Aparna Rodriguez Discharge Time > 30 minutes Mental Status Examination Appearance: Appropriate Consciousness: Alert Orientation: x4, Person Motor Activity: Normal gait Speech: Unremarkable Language: Adequate Fund of Knowledge: Adequate Attention and Concentration: Adequate Memory: Impaired Mood: Sad Thought Process & Associations: Loose associations Thought Content: Bizarre thinking Hallucination Type: None Delusion Type: Bizarre, Paranoid Suicidal Ideation: No Suicidal Plan: No Suicidal Intention: No Homicidal Ideation: No Homicidal Plan: No Homicidal Intention: No Insight: Poor Judgment: Poor Discharge/Advance Care Plan Health Problems: (1) DEMENTIA IN OTH DISEASES CLASSD ELSWHR W BEHAVIORAL DISTURB (2) ALZHEIMER'S DISEASE WITH LATE ONSET Goals to promote your health * To prevent worsening of your condition and complications * To maintain your health at the optimal level Directions to meet your goals Take your medications as prescribed Follow your dietary instruction Follow activity as directed Keep your appointments as scheduled Take your immunizations and boosters as scheduled If your symptoms worsen call your PCP, if no PCP go to Urgent Care Center or Emergency Room For 24/ questions related to your inpatient stay or results of tests pending at discharge, please contact Dr. Jona Lynn at Smoking is Dangerous to Your Health. Avoid second hand smoking Jona Lynn MD May 26, 2017 11:38
== END 2017-05-26 13:40 | DRG 57 ==
LOC: NEPJ 19:48 → NEDA 05-21 00:54 → H250 05-21 00:55
PROVIDERS: ADMIT Psychiatry & Neurology Psychiatry; ATTEND Psychiatry & Neurology Psychiatry
DX: G30.1 Alzheimer's disease with late onset (principal); N17.9 Acute kidney failure, unspecified; F02.81 Dementia in other diseases classified elsewhere, unspecified severity, with behavioral disturbance; G40.909 Epilepsy, unspecified, not intractable, without status epilepticus; I10 Essential (primary) hypertension; S41.111A Laceration without foreign body of right upper arm, initial encounter; D72.829 Elevated white blood cell count, unspecified; F43.12 Post-traumatic stress disorder, chronic; H91.90 Unspecified hearing loss, unspecified ear; N40.0 Benign prostatic hyperplasia without lower urinary tract symptoms; S41.112A Laceration without foreign body of left upper arm, initial encounter; X58.XXXA Exposure to other specified factors, initial encounter
CPT/HCPCS: 71045; 80053; 80164; 81001; 83036; 83735; 84100; 84439; 84443; 85025; 96372; J1200